=== PATIENT | male | born 1955 | race Caucasian/White ===

== ENCOUNTER 2018-10-18 05:43 | Emergency (ER) | payer MEDICARE, SELFPAY ==
[2018-10-18] VITALS (34 sets, daily range): BP systolic 94–126; BP diastolic 53–82; PULSE 59–124; RESP 10–45; TEMP 36.8; O2SAT 94–99
[2018-10-18 05:56] LABS: Abs Immature Grans 0.03 k/cumm (0.0-0.09); Absolute Basophil Count 0.03 k/cumm (0.0-0.2); Absolute Eosinophil Count 0.31 k/cumm (0.0-0.7); Absolute Lymphocyte Count 1.45 k/cumm (1.2-3.4); Absolute Monocyte Count 0.84 k/cumm (0.11-0.7); Absolute Neutrophil Count 4.23 k/cumm (1.2-6.7); Basophils % 0.4; Eosinophils % 4.5; HCT 41.6 % (40.0-50.0); HGB 14.6 g/dL (13.5-17.5); Immature Grans % 0.4; Mean Corp. HGB Concentration 35.1 g/dL (32.0-36.0); Mean Corpuscular Hemoglobin 32.9 pg (27.0-33.0); Mean Corpuscular Volume 93.7 fL (80-95); Mean Platelet Volume 11.2 fL (8.0-11.0); Monocytes % 12.2; Neutrophils % 61.5; Platelet Count 213 x1000/uL (130-400); RBC 4.44 m/cumm (4.50-6.00); RBC Distribution Width 13.8 % (11.8-14.1); White Blood Cell Count 6.89 k/cumm (4.4-10.8)
--- NOTE | 2018-10-18 05:58 | W.ED.GENAD ---
Discharge Plan Disposition Patient Disposition: [facility] Condition: Stable Discharge Details Chief Complaint: Chest Pain Clinical Impression: Non-ST elevation [place] (NSTEMI) Reason For Visit: LORNE Primary Care Provider: Amee Swain ED Provider: Bruce Oglesby Home Meds and New Rx's Prescriptions: No Action carvedilol 12.5 mg Tablet 12.5 mg PO DAILY RF: 0 aspirin 325 mg Tablet 325 mg PO DAILY RF: 0 nitroglycerin [Nitrostat] 0.4 mg Tablet, Sublingual 0.4 mg SUBLINGUAL .PRN CHEST PAIN RF: 0 Medical Decision Making 63-year-old male with history of coronary artery disease states to me that he is been having intermittent episodes of chest discomfort since July. He states that it initially seem to occur primarily with exertion and resolve with rest, now has begun to have rest pain over days time and required 3 NTG at home prior to EMS arrival. He arrives with chest pain that is abating. His vital signs are unremarkable. I obtained and reviewed records from his office visit with Dr. Jacobs on October 12. Office records note an EKG that reveals lateral ST depressions with T wave inversions that are not changed. It notes that the patient had stopped his medications due to monetary difficulties. The patient confirms this and states he had not been taking carvedilol for approximately 6 weeks prior to seeing his coupon clerk. He has restarted his medications including twice daily aspirin, carvedilol. Differential diagnosis includes stable angina, unstable angina, acute coronary syndrome. Patient was placed on a manager monitoring, referred for laboratory testing, EKG, chest x-ray. He had received 325mg aspirin and nitroglycerin x1 on route, was given a second nitroglycerin with improvement of discomfort. EKG is unchanged versus that described in the office visit with lateral ST segment depressions T wave inversions present. Labs reveal a positive troponin of 0.24. CBC stable, creatinine 1.2. The coagulation panel was reported as lipemic and not yet resulted. CXR without acute findings. Given the change in the patient's angina pattern, positive troponin, and history of multivessel coronary artery disease, the case was discussed with Dr Stoddard and patient accepted to Dr Mariano service. Medical Records Medical records reviewed: Yes I reviewed the patient's medical records. Lab Data Lab results reviewed: Yes I reviewed the patient's lab results. Laboratory Results - last 24 hr 10/18/18 10/18/18 10/18/18 05:46 05:46 05:46 WBC 6.89 RBC 4.44 L Hgb 14.6 Hct 41.6 MCV 93.7 MCH 32.9 MCHC 35.1 RDW 13.8 Plt Count 213 MPV 11.2 H Immature Gran % 0.4 Neutrophils % 61.5 Lymphocytes % 21.0 Monocytes % 12.2 Eosinophils % 4.5 Basophils % 0.4 Absolute Neutrophils 4.23 Absolute Lymphocytes 1.45 Absolute Monocytes 0.84 H Absolute Eosinophils 0.31 Absolute Basophils 0.03 APTT Sodium 135 L Potassium 4.3 Chloride 102 Carbon Dioxide 23.5 Anion Gap 9.5 BUN 22 H Creatinine 1.28 Estimated GFR/1.73 m2 56.95 Glucose 162 H Calcium 8.7 Magnesium 2.2 Total Bilirubin 0.5 AST 21 ALT 17 Alkaline Phosphatase 72 Troponin I 0.24 H Total Protein 7.3 Albumin 3.4 10/18/18 05:57 WBC RBC Hgb Hct MCV MCH MCHC RDW Plt Count MPV Immature Gran % Neutrophils % Lymphocytes % Monocytes % Eosinophils % Basophils % Absolute Neutrophils Absolute Lymphocytes Absolute Monocytes Absolute Eosinophils Absolute Basophils APTT Sodium Cancelled Potassium Cancelled Chloride Cancelled Carbon Dioxide Cancelled Anion Gap Cancelled BUN Cancelled Creatinine Cancelled Estimated GFR/1.73 m2 Cancelled Glucose Cancelled Calcium Cancelled Magnesium Total Bilirubin Cancelled AST Cancelled ALT Cancelled Alkaline Phosphatase Cancelled Troponin I Cancelled Total Protein Cancelled Albumin Cancelled ECG Data Attestation: I personally reviewed and interpreted this ECG (s) as follows: Prior ECG tracings: available for review Interpretation: EKG reveals normal sinus rhythm, rate of 66, lateral ST segment depressions with T wave inversions. HPI General Mode of arrival: ambulatory. Date/Time Provider Initiated Documentation: 10/18/18 06:06. Limitations to Documentation: no limitations. Information obtained by: patient. History of Present Illness 63 year old M presents to the emergency department with the chief complaint of Chest pain, described as moderate, Quality is described as dull, and is localized to the chest and left. Patient reports no radiation. Patient started experiencing this hour(s) and it has been intermittent. Rest improves symptom(s), No exacerbating factors reported . Patient notes no other symptoms.. Patient did receive the following treatments prior to arrival, none HPI Narrative: 63-year-old male with a history of coronary artery disease status post percutaneous stenting in the past who states that since July he has had intermittent episodes of anterior/substernal chest discomfort. He was awakened at 0200 this morning by 6 out of 10 substernal chest pressure, states that he took 3 some legal nitroglycerin at home with no significant change. He states that at times since July the pain has improved with rest and again seems to improve this morning. He denies any associated shortness of breath, peripheral edema, recent illness Related Data Home Medications Medication Instructions Recorded Confirmed aspirin 325 mg PO DAILY 10/18/18 10/18/18 carvedilol 12.5 mg PO DAILY 10/18/18 10/18/18 nitroglycerin [Nitrostat] 0.4 mg SUBLINGUAL .PRN CHEST PAIN 10/18/18 10/18/18 Allergies Allergy/AdvReac Type Severity Reaction Status Date / Time Sulfa (Sulfonamide Allergy Unverified 10/18/18 05:48 Antibiotics) General Stated Complaint: Chest Pain FIDENCIO: 2 Review of Systems Review of Systems 8 systems reviewed and otherwise neg [facility] Social History Smoking/Tobacco Use Status: Former Tobacco Use Exam Narrative Exam Narrative: GEN: awake, alert, oriented 3. Pleasant, well groomed, interactive. HEAD: Normocephalic, atraumatic ENT: Mucous membranes moist, oropharynx unremarkable, External ear exam unremarkable EYES: PERRL, EOMI NECK: Full ROM, no COLIN, no menigismus CHEST/RESP: Nontender, clear to auscultation bilateral, no wheeze/rhonchi/rales CARDIOVASCULAR: RRR, no murmur, rub alejandra. 2+ Rad pulse bilateral ABDOMEN: Soft, nontender, no mass. +Bowel sounds EXT: Full ROM, no edema, no rash Neuro: Grossly normal neurologic exam, conversant, interactive. Psych: Speech fluent, thoughts congruent, affect normal Course Vital Signs Temperature 36.8 C 10/18/18 05:44 Pulse 71 10/18/18 05:44 Respiratory Rate 12 10/18/18 05:44 Blood Pressure 126/80 10/18/18 05:44 Pulse Oximetry 97 10/18/18 05:44 Temperature 36.8 C 10/18/18 05:44 Temperature Source Temporal Artery Scan 10/18/18 05:44 Pulse 71 10/18/18 05:44 Respiratory Rate 12 10/18/18 05:55 Respiratory Effort Non-Labored 10/18/18 05:55 Respiratory Depth Normal 10/18/18 05:55 Respiratory Pattern Normal 10/18/18 05:55 Blood Pressure 126/80 10/18/18 05:44 Blood Pressure Position Supine 10/18/18 05:44 Pulse Oximetry 97 10/18/18 05:44 Oxygen Delivery Method Room Air 10/18/18 05:44 Oxygen Flow Rate 0 10/18/18 05:44 Pain Level 4 10/18/18 05:55 Lab/Test Results Lab/Test Results: Laboratory Tests Range/Units 10/18/18 05:46 WBC (4.4-10.8) k/cumm 6.89 RBC (4.50-6.00) m/cumm 4.44 L Hgb (13.5-17.5) g/dL 14.6 Hct (40.0-50.0) % 41.6 MCV (80-95) fL 93.7 MCH (27.0-33.0) pg 32.9 MCHC (32.0-36.0) g/dL 35.1 RDW (11.8-14.1) % 13.8 Plt Count (130-400) x1000/uL 213 MPV (8.0-11.0) fL 11.2 H Immature Gran % 0.4 Neutrophils % 61.5 Lymphocytes % 21.0 Monocytes % 12.2 Eosinophils % 4.5 Basophils % 0.4 Absolute Neutrophils (1.2-6.7) k/cumm 4.23 Absolute Lymphocytes (1.2-3.4) k/cumm 1.45 Absolute Monocytes (0.11-0.7) k/cumm 0.84 H Absolute Eosinophils (0.0-0.7) k/cumm 0.31 Absolute Basophils (0.0-0.2) k/cumm 0.03
--- NOTE | 2018-10-18 06:01 | ED.GENADUL_ITS ---
Discharge Plan Disposition Patient Disposition: [facility] Condition: Stable Discharge Details Chief Complaint: Chest Pain Clinical Impression: Non-ST elevation [place] (NSTEMI) Reason For Visit: LORNE Primary Care Provider: Amee Swain ED Provider: Bruce Oglesby Home Meds and New Rx's Prescriptions: No Action carvedilol 12.5 mg Tablet 12.5 mg PO DAILY RF: 0 aspirin 325 mg Tablet 325 mg PO DAILY RF: 0 nitroglycerin [Nitrostat] 0.4 mg Tablet, Sublingual 0.4 mg SUBLINGUAL .PRN CHEST PAIN RF: 0 Medical Decision Making 63-year-old male with history of coronary artery disease states to me that he is been having intermittent episodes of chest discomfort since July. He states that it initially seem to occur primarily with exertion and resolve with rest, now has begun to have rest pain over days time and required 3 NTG at home prior to EMS arrival. He arrives with chest pain that is abating. His vital signs are unremarkable. I obtained and reviewed records from his office visit with Dr. Jacobs on October 12. Office records note an EKG that reveals lateral ST depressions with T wave inversions that are not changed. It notes that the patient had stopped his medications due to monetary difficulties. The patient confirms this and states he had not been taking carvedilol for approximately 6 weeks prior to seeing his boiling tub operator. He has restarted his medications including twice daily aspirin, carvedilol. Differential diagnosis includes stable angina, unstable angina, acute coronary syndrome. Patient was placed on a senior formulation scientist, referred for laboratory testing, EKG, chest x-ray. He had received 325mg aspirin and nitroglycerin x1 on route, was given a second nitroglycerin with improvement of discomfort. EKG is unchanged versus that described in the office visit with lateral ST segment depressions T wave inversions present. Labs reveal a positive troponin of 0.24. CBC stable, creatinine 1.2. The coagulation panel was reported as lipemic and not yet resulted. CXR without acute findings. Given the change in the patient's angina pattern, positive troponin, and history of multivessel coronary artery disease, the case was discussed with Dr Stoddard and patient accepted to Dr Mariano service. Medical Records Medical records reviewed: Yes I reviewed the patient's medical records. Lab Data Lab results reviewed: Yes I reviewed the patient's lab results. Laboratory Results - last 24 hr 10/18/18 10/18/18 10/18/18 05:46 05:46 05:46 WBC 6.89 RBC 4.44 L Hgb 14.6 Hct 41.6 MCV 93.7 MCH 32.9 MCHC 35.1 RDW 13.8 Plt Count 213 MPV 11.2 H Immature Gran % 0.4 Neutrophils % 61.5 Lymphocytes % 21.0 Monocytes % 12.2 Eosinophils % 4.5 Basophils % 0.4 Absolute Neutrophils 4.23 Absolute Lymphocytes 1.45 Absolute Monocytes 0.84 H Absolute Eosinophils 0.31 Absolute Basophils 0.03 APTT Sodium 135 L Potassium 4.3 Chloride 102 Carbon Dioxide 23.5 Anion Gap 9.5 BUN 22 H Creatinine 1.28 Estimated GFR/1.73 m2 56.95 Glucose 162 H Calcium 8.7 Magnesium 2.2 Total Bilirubin 0.5 AST 21 ALT 17 Alkaline Phosphatase 72 Troponin I 0.24 H Total Protein 7.3 Albumin 3.4 10/18/18 05:57 WBC RBC Hgb Hct MCV MCH MCHC RDW Plt Count MPV Immature Gran % Neutrophils % Lymphocytes % Monocytes % Eosinophils % Basophils % Absolute Neutrophils Absolute Lymphocytes Absolute Monocytes Absolute Eosinophils Absolute Basophils APTT Sodium Cancelled Potassium Cancelled Chloride Cancelled Carbon Dioxide Cancelled Anion Gap Cancelled BUN Cancelled Creatinine Cancelled Estimated GFR/1.73 m2 Cancelled Glucose Cancelled Calcium Cancelled Magnesium Total Bilirubin Cancelled AST Cancelled ALT Cancelled Alkaline Phosphatase Cancelled Troponin I Cancelled Total Protein Cancelled Albumin Cancelled ECG Data Attestation: I personally reviewed and interpreted this ECG (s) as follows: Prior ECG tracings: available for review Interpretation: EKG reveals normal sinus rhythm, rate of 66, lateral ST segment depressions with T wave inversions. HPI General Mode of arrival: ambulatory . Date/Time Provider Initiated Documentation: 10/18/18 06:06 . Limitations to Documentation: no limitations . Information obtained by: patient . History of Present Illness 63 year old M presents to the emergency department with the chief complaint of Chest pain, described as moderate, Quality is described as dull, and is localized to the chest and left. Patient reports no radiation. Patient started experiencing this hour(s) and it has been intermittent. Rest improves symptom(s), No exacerbating factors reported . Patient notes no other symptoms.. Patient did receive the following treatments prior to arrival, none HPI Narrative: 63-year-old male with a history of coronary artery disease status post percutaneous stenting in the past who states that since July he has had intermittent episodes of anterior/substernal chest discomfort. He was awakened at 0200 this morning by 6 out of 10 substernal chest pressure, states that he took 3 some legal nitroglycerin at home with no significant change. He states that at times since July the pain has improved with rest and again seems to improve this morning. He denies any associated shortness of breath, peripheral edema, recent illness Related Data Home Medications Medication Instructions Recorded Confirmed aspirin 325 mg PO DAILY 10/18/18 10/18/18 carvedilol 12.5 mg PO DAILY 10/18/18 10/18/18 nitroglycerin [Nitrostat] 0.4 mg SUBLINGUAL .PRN CHEST PAIN 10/18/18 10/18/18 Allergies Allergy/AdvReac Type Severity Reaction Status Date / Time Sulfa (Sulfonamide Allergy Unverified 10/18/18 05:48 Antibiotics) General Stated Complaint: Chest Pain FIDENCIO: 2 Review of Systems Review of Systems 8 systems reviewed and otherwise neg [facility] Social History Smoking/Tobacco Use Status: Former Tobacco Use Exam Narrative Exam Narrative: GEN: awake, alert, oriented 3. Pleasant, well groomed, interactive. HEAD: Normocephalic, atraumatic ENT: Mucous membranes moist, oropharynx unremarkable, External ear exam unremarkable EYES: PERRL, EOMI NECK: Full ROM, no COLIN, no menigismus CHEST/RESP: Nontender, clear to auscultation bilateral, no wheeze/rhonchi/rales CARDIOVASCULAR: RRR, no murmur, rub alejandra. 2+ Rad pulse bilateral ABDOMEN: Soft, nontender, no mass. +Bowel sounds EXT: Full ROM, no edema, no rash Neuro: Grossly normal neurologic exam, conversant, interactive. Psych: Speech fluent, thoughts congruent, affect normal Course Vital Signs Temperature 36.8 C 10/18/18 05:44 Pulse 71 10/18/18 05:44 Respiratory Rate 12 10/18/18 05:44 Blood Pressure 126/80 10/18/18 05:44 Pulse Oximetry 97 10/18/18 05:44 Temperature 36.8 C 10/18/18 05:44 Temperature Source Temporal Artery Scan 10/18/18 05:44 Pulse 71 10/18/18 05:44 Respiratory Rate 12 10/18/18 05:55 Respiratory Effort Non-Labored 10/18/18 05:55 Respiratory Depth Normal 10/18/18 05:55 Respiratory Pattern Normal 10/18/18 05:55 Blood Pressure 126/80 10/18/18 05:44 Blood Pressure Position Supine 10/18/18 05:44 Pulse Oximetry 97 10/18/18 05:44 Oxygen Delivery Method Room Air 10/18/18 05:44 Oxygen Flow Rate 0 10/18/18 05:44 Pain Level 4 10/18/18 05:55 Lab/Test Results Lab/Test Results: Laboratory Tests Range/Units 10/18/18 05:46 WBC (4.4-10.8) k/cumm 6.89 RBC (4.50-6.00) m/cumm 4.44 L Hgb (13.5-17.5) g/dL 14.6 Hct (40.0-50.0) % 41.6 MCV (80-95) fL 93.7 MCH (27.0-33.0) pg 32.9 MCHC (32.0-36.0) g/dL 35.1 RDW (11.8-14.1) % 13.8 Plt Count (130-400) x1000/uL 213 MPV (8.0-11.0) fL 11.2 H Immature Gran % 0.4 Neutrophils % 61.5 Lymphocytes % 21.0 Monocytes % 12.2 Eosinophils % 4.5 Basophils % 0.4 Absolute Neutrophils (1.2-6.7) k/cumm 4.23 Absolute Lymphocytes (1.2-3.4) k/cumm 1.45 Absolute Monocytes (0.11-0.7) k/cumm 0.84 H Absolute Eosinophils (0.0-0.7) k/cumm 0.31 Absolute Basophils (0.0-0.2) k/cumm 0.03
--- NOTE | 2018-10-18 06:10 | DI.RAD_ITS ---
SYMPTOM/DIAGNOSIS: LT ANT CHEST PAIN PA AND LATERAL CHEST: Comparison is made with 08/26/09. Heart size and pulmonary vasculature are within normal limits. The lungs are clear and well expanded. No effusions or pneumothoraces are identified. There are old compression deformities seen in the mid thoracic spine with exaggeration of the thoracic kyphosis. No acute abnormality is seen in the bones. IMPRESSION: No acute pulmonary process.
[2018-10-18 06:12] LABS: Albumin 3.4 g/dL (3.4-5.0); Anion Gap 9.5 mmol/L (3-11); BUN 22 mg/dL (7-18); Bilirubin, Total 0.5 mg/dL (0.2-1.0); CO2 23.5 mmol/L (21.0-32.0); CREATININE 1.28 mg/dL (0.70-1.30); Chloride 102 mmol/L (98-107); Estimated GFR 56.95 (mL/min/1.73m2); Magnesium 2.2 mg/dL (1.8-2.4); Potassium 4.3 mmol/L (3.5-5.1); Sodium 135 mmol/L (136-145); Total Protein 7.3 g/dL (6.4-8.2)
[2018-10-18 06:25] LABS: AST 21 U/L (15-37); Alkaline Phosphatase 72 U/L (46-116)
[2018-10-18 06:36] LABS: Troponin I 0.24 ng/mL (0.00-0.06)
[2018-10-18 06:37] LABS: Calcium 8.7 mg/dL (8.5-10.1)
[2018-10-18 06:38] LABS: ALT 17 U/L (12-78)
[2018-10-18 06:39] LABS: Glucose 162 mg/dL (70-100)
--- NOTE | 2018-10-18 06:49 | DI.VRAD_ITS ---
EXAM: XR Chest, 2 Views EXAM DATE/TIME: 10/18/2018 6:11 AM CLINICAL HISTORY: 63 years old, male; Pain; Chest pain; Left-sided chest pain; Patient HX: Left anterior chest pain TECHNIQUE: XR of the chest, 2 views. COMPARISON: No relevant prior studies available. FINDINGS: Lungs: Unremarkable. No consolidation. Pleural space: Unremarkable. No pleural effusion. No pneumothorax. Heart/Mediastinum: Unremarkable. No cardiomegaly. Bones/joints: Unremarkable. IMPRESSION: No acute findings. Dictated and Authenticated by: Shivam Recinos MD. Ordering:TIM Barrera MD
[2018-10-18] MEDS: Normal Saline 1,000 ML 50 ML IV (07:07)
[2018-10-18] MEDS: Clopidogrel 300 MG TAB PO (07:14)
--- NOTE | 2018-10-18 07:24 | PDOC.ERCMPRO ---
Care Management Progress Note 10/18-Dr. Oglesby requested that this CM speak with Lico concerning medication and insurance. Met with Lico. I thought I was having a heart attack. I am waiting for the doctor to tell me my blood test results to see if I did. Lico states he had not taken his medication for some time because he could not afford it. Lico states he used to have Medicare Part D but the premium was too expensive and he just didn't have the income to pay. Lico states he recently was able to get his medications. Interested in patient assistance. Discussed [employer] and applying for Medicaid. Lico states he does not want welfare. Explained to Lico that Medicaid was not welfare and that if he qualified, it would take care of his medications and doctor/hospital copays. This CM gave him a pamphlet to [employer]. Also gave Lico Patient assistance contact for [facility].Lico states he will call [facility] Kimberly. and set up a time. If Lico is discharged from the ED, he states he will call a friend to come and get him. Dr. Oglesby has results back and discussed with Lico. Lico is being transferred to [facility] for a NSTEMI. Lico will call his friend to let him know. Dr Schilling is Lico's supervisor paste mixing. Shantelle Araujo ND is his PCP. Lico has this CM's contact information if further assistance is needed.
[2018-10-18] MEDS: Mylanta Suspension 30 ML CUP (07:31)
--- NOTE | 2018-10-18 07:34 | CMPROGNOTE_ITS ---
Care Management Progress Note 10/18-Dr. Oglesby requested that this CM speak with Lico concerning medication and insurance. Met with Lico. I thought I was having a heart attack. I am waiting for the doctor to tell me my blood test results to see if I did. Lico states he had not taken his medication for some time because he could not afford it. Lico states he used to have Medicare Part D but the premium was too expensive and he just didn't have the income to pay. Lico states he recently was able to get his medications. Interested in patient assistance. Discussed [employer] and applying for Medicaid. Lico states he does not want welfare. Explained to Lico that Medicaid was not welfare and that if he qualified, it would take care of his medications and doctor/hospital copays. This CM gave him a pamphlet to [employer]. Also gave Lico Patient assistance contact for [facility].Lico states he will call [facility] Kimberly. and set up a time. If Lico is discharged from the ED, he states he will call a friend to come and get him. Dr. Oglesby has results back and discussed with Lico. Lico is being transferred to [facility] for a NSTEMI. Lico will call his friend to let him know. Dr Schilling is Lico's light oil operator. Shantelle Araujo ND is his PCP. Lico has this CM's contact information if further assistance is needed.
[2018-10-18 16:23] LABS: PTT (UVM) 30 secs (26-37)
== END 2018-10-18 09:09 | disposition short-term general hospital (02) ==
PROVIDERS: Emergency Provider Emergency Medicine; PCP Naturopath
DX: I21.4 Non-ST elevation (NSTEMI) myocardial infarction (principal); T44.7X6A Underdosing of beta-adrenoreceptor antagonists, initial encounter; Z91.120 Patient's intentional underdosing of medication regimen due to financial hardship; I25.2 Old myocardial infarction; Z95.5 Presence of coronary angioplasty implant and graft
CPT/HCPCS: 36415; 80053; 85610; 85730; 93005; 96365; 96366; 96376; 99285; 71046; 83735; 84484; 85025; 93010

== ENCOUNTER 2018-11-22 10:00 | Outpatient (RCR) | payer MEDICARE, SELFPAY | END 2018-11-25 23:59 | disposition home or self-care (01) | LOC: CR 10:00 | PROVIDERS: PCP Naturopath; Visit Provider Family Medicine | DX: I25.2 Old myocardial infarction (principal); Z51.89 Encounter for other specified aftercare | CPT/HCPCS: S9472 ==

== ENCOUNTER 2018-11-22 16:04 | Outpatient (RCR) | payer MEDICARE, SELFPAY ==
--- NOTE | 2018-11-22 16:10 | COCO.CNN ---
Primary Reason for Visit Insurance (Medicaid application and patient assistance applications) Referral to Care Coordination Referral to Care Coordination: No Referral to Services: No - Referral From Referral From: [facility] Care Plan - Plan of Care Assessment/Background: client was walk in. needs assistance with Medicaid application. states had recent surgery and has bills coming in from [facility], ambulance and [facility]. bills have not arrived yet. attending caric rehab and needs assistance with paying for gas for car to get there. 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 Plan of Care: This CHW went over MED 202 with client. client does not have all information needed to complete and will do so at home. This CHW printed off [facility] Patient assistance application so client can see what he will need to provide for documentation for that and [facility] patient assistance application if he receives denial notice for Medicaid. This CHW gave client [facility] contact information for him to inquire if he can obtain mileage for transportating himself to cardiac rehab 3 times a week. [facility] Self Management Plan Complete?: No
--- NOTE | 2018-11-22 16:17 | PDOC.CNN_ITS ---
Primary Reason for Visit Insurance (Medicaid application and patient assistance applications) Referral to Care Coordination Referral to Care Coordination: No Referral to Services: No - Referral From Referral From: [facility] Care Plan - Plan of Care Assessment/Background: client was walk in. needs assistance with Medicaid application. states had recent surgery and has bills coming in from [facility], ambulance and [facility]. bills have not arrived yet. attending caric rehab and needs assistance with paying for gas for car to get there. 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 Plan of Care: This CHW went over MED 202 with client. client does not have all information needed to complete and will do so at home. This CHW printed off [facility] Patient assistance application so client can see what he will need to provide for documentation for that and [facility] patient assistance application if he receives denial notice for Medicaid. This CHW gave client [facility] contact i nformation for him to inquire if he can obtain mileage for transportating himself to cardiac rehab 3 times a week. [facility] Self Management Plan Complete?: No
== END 2018-11-25 23:59 | disposition home or self-care (01) ==
LOC: COCO 16:04
PROVIDERS: PCP Naturopath; Visit Provider Naturopath
DX: R69 Illness, unspecified (principal)

== ENCOUNTER 2018-12-22 09:00 | Outpatient (RCR) | payer MEDICARE, SELFPAY | END 2018-12-26 23:59 | disposition home or self-care (01) | LOC: CR 09:00 | PROVIDERS: PCP Naturopath; Visit Provider Family Medicine | DX: I25.2 Old myocardial infarction (principal); Z51.89 Encounter for other specified aftercare | CPT/HCPCS: S9472 ==

== ENCOUNTER 2019-01-24 10:00 | Outpatient (RCR) | payer MEDICARE, SELFPAY | END 2019-01-25 23:59 | disposition home or self-care (01) | LOC: CR 10:00 | PROVIDERS: PCP Family Medicine; Visit Provider Family Medicine | DX: I25.2 Old myocardial infarction (principal); Z51.89 Encounter for other specified aftercare | CPT/HCPCS: S9472 ==

== ENCOUNTER 2019-02-09 02:15 | Outpatient (CLI) | payer MEDICARE, SELFPAY ==
[2019-02-09 10:38] LABS: Cholesterol 232 mg/dL (50-200); HDL Cholesterol 32 mg/dL (40-60); LDL CHOLESTEROL 110 mg/dL (<100); Triglyceride 493 mg/dL (30-150)
== END 2019-02-09 02:35 ==
PROVIDERS: PCP Family Medicine; Visit Provider Internal Medicine Cardiovascular Disease
DX: E78.5 Hyperlipidemia, unspecified (principal)
CPT/HCPCS: 36415; 80061; 83721

== ENCOUNTER 2019-02-25 11:52 | Outpatient (RCR) | payer MEDICARE, SELFPAY | END 2019-02-25 23:59 | disposition home or self-care (01) | LOC: CR 11:52 | PROVIDERS: PCP Family Medicine; Visit Provider Family Medicine | DX: I25.2 Old myocardial infarction (principal); Z51.89 Encounter for other specified aftercare | CPT/HCPCS: S9472 ==

== ENCOUNTER 2019-03-25 10:00 | Outpatient (RCR) | payer MEDICARE, SELFPAY | END 2019-03-27 23:59 | disposition home or self-care (01) | LOC: CR 10:00 | PROVIDERS: PCP Family Medicine; Visit Provider Family Medicine | DX: I25.2 Old myocardial infarction (principal); Z51.89 Encounter for other specified aftercare | CPT/HCPCS: S9472 ==

== ENCOUNTER 2019-03-28 12:36 | Outpatient (RCR) | payer MEDICARE, SELFPAY | END 2019-04-27 23:59 | disposition home or self-care (01) | LOC: CR 12:36 | PROVIDERS: PCP Family Medicine; Visit Provider Family Medicine | DX: I25.2 Old myocardial infarction (principal); Z51.89 Encounter for other specified aftercare | CPT/HCPCS: S9472 ==

== ENCOUNTER 2019-04-08 07:31 | Outpatient (CLI) | payer MEDICARE, SELFPAY ==
[2019-04-08 09:14] LABS: Calculated LDL 128 mg/dL; Cholesterol 218 mg/dL (50-200); HDL Cholesterol 36 mg/dL (40-60); Triglyceride 273 mg/dL (30-150)
== END 2019-04-08 07:51 ==
PROVIDERS: PCP Family Medicine; Visit Provider Internal Medicine Cardiovascular Disease
DX: E78.5 Hyperlipidemia, unspecified (principal)
CPT/HCPCS: 36415; 80061; 83721

== ENCOUNTER 2019-12-07 02:59 | Observation (INO) | payer MEDICARE, SELFPAY ==
[2019-12-07] VITALS (37 sets, daily range): BP systolic 93–142; BP diastolic 47–90; PULSE 55–88; RESP 10–25; TEMP 36.4–37.2; O2SAT 86–98
--- NOTE | 2019-12-07 03:08 | W.ED.GENAD ---
Discharge Plan Disposition Patient Disposition: [facility] INPATIENT Condition: Stable Discharge Details Chief Complaint: Abd Prob Clinical Impression: Acute appendicitis Primary Care Provider: Bruce Nelson ED Provider: Maged Delarosa Home Meds and New Rx's Prescriptions: No Action clopidogrel 75 mg tablet 75 mg PO DAILY RF: 0 carvedilol 12.5 mg Tablet 12.5 mg PO DAILY RF: 0 aspirin 325 mg Tablet 325 mg PO DAILY RF: 0 nitroglycerin [Nitrostat] 0.4 mg Tablet, Sublingual 0.4 mg SUBLINGUAL .PRN CHEST PAIN RF: 0 lisinopril 2.5 mg Tablet 2.5 mg DAILY RF: 0 Medical Decision Making 64 yo male with hx of cad s/p stenting 4 times, former smoker, hld, who drinks a couple of beers a day and denies drug use and has never had abdominal surgeries comes in with cc of abdominal pain. he states he has episodes of cramping in his abdomen frequently but usually goes away in a few hours but tonight the pain has continued longer and had some dry heaving so came here. Denies chest pain, sob, diarrhea, and has no urinary symptoms per his report. He has tenderness without guarding in the lower abdomen no upper abdominal pain or distention. Will obtain lab work and ct imaging to eval for pancreatitis, diverticulitis among other pathology. He declines pain meds at this time ct shows acute appendicitis. Spoke with Dr. Olivera who accepts to her service. Differential Diagnosis Differential Diagnosis: appendicitis, uti, colitis, diverticulitis Imaging Data Radiologic Study: Attestation: I personally reviewed and interpreted this imaging study as follows: Imaging: CT Scan Radiologist's impression: IMPRESSION: 1. Acute appendicitis. 2. The appendix measures 1 cm in transverse dimension. No abscess or free air Lab Data Lab results reviewed: Yes I reviewed the patient's lab results. HPI General Mode of arrival: ambulatory. Date/Time Provider Initiated Documentation: 12/07/19 03:01. Limitations to Documentation: no limitations. Information obtained by: patient. History of Present Illness 64 year old M presents to the emergency department with the chief complaint of abdominal pain, described as moderate, Patient started experiencing this hour(s) (7) and it has been intermittent. No relieving factors improve symptom(s), No exacerbating factors reported . Patient notes no other symptoms.. Patient did receive the following treatments prior to arrival, none Related Data Home Medications Medication Instructions Recorded Confirmed aspirin 325 mg PO DAILY 10/18/18 12/07/19 carvedilol 12.5 mg PO DAILY 10/18/18 12/07/19 nitroglycerin [Nitrostat] 0.4 mg SUBLINGUAL .PRN CHEST PAIN 10/18/18 12/07/19 clopidogrel 75 mg tablet 75 mg PO DAILY 12/24/18 12/07/19 lisinopril 2.5 mg DAILY 12/07/19 12/07/19 Allergies Allergy/AdvReac Type Severity Reaction Status Date / Time Sulfa (Sulfonamide Allergy Unverified 10/18/18 05:48 Antibiotics) General FIDENCIO: 2 Review of Systems All systems reviewed & are unremarkable except as noted in HPI and below Constitutional Constitutional: Denies chills and Denies fever(s) Cardiovascular Cardiovascular: Denies chest pain and Denies dyspnea Respiratory Respiratory: Denies cough and Denies dyspnea Musculoskeletal Musculoskeletal: Denies joint swelling Psychiatric Psychiatric: Denies depression [facility] Social History (Updated 11/19/18 @ 09:45 by Amelia Ortega) Smoking/Tobacco Use Status: Former Tobacco Use Alcohol Intake: current Alcohol Intake frequency: 0-2 drinks per day Substance use type: does not use Do you feel safe at home: Yes Do you feel safe in your relationship?: Yes Exam Const General: no acute distress Orientation: alert HENMT Head: normal to inspection Ears: external ears normal General nose exam: external nose normal Mouth: moist mucous membranes Eyes General: appearance normal, both eyes and all related structures Neck Neck: normal visual inspection Resp Effort & Inspection: normal respiratory effort and able to speak in complete sentences Cardio Rate: regular rate GI Palpation: soft and tender Skin General skin exam: no rashes or lesions noted Neuro General: alert and oriented x3 Extrem General: normal to inspection Psych Mental Status: mental status grossly normal
[2019-12-07 03:29] LABS: Abs Immature Grans 0.02 k/cumm (0.0-0.09); Absolute Eosinophil Count 0.01 k/cumm (0.0-0.7); Absolute Lymphocyte Count 0.98 k/cumm (1.2-3.4); Absolute Monocyte Count 1.04 k/cumm (0.11-0.7); Basophils % 0.1; Eosinophils % 0.1; HCT 42.5 % (40.0-50.0); HGB 14.6 g/dL (13.5-17.5); Immature Grans % 0.1 %; Lymphocytes % 7.1; Mean Corp. HGB Concentration 34.4 g/dL (32.0-36.0); Mean Corpuscular Hemoglobin 31.9 pg (27.0-33.0); Monocytes % 7.5; Neutrophils % 85.1; Platelet Count 238 x1000/uL (130-400); RBC 4.57 m/cumm (4.50-6.00); RBC Distribution Width 13.5 % (11.8-14.1); White Blood Cell Count 13.87 k/cumm (4.4-10.8)
--- NOTE | 2019-12-07 03:30 | DI.CT_ITS ---
EXAM: CT ABDOMEN PELVIS W CLINICAL HISTORY: lower abdominal pain. TECHNIQUE: Imaging Protocol: Axial computed tomography images with coronal and sagittal reformatted images were created and reviewed CONTRAST MATERIAL: Intravenous: Omnipaque 350 Contrast volume:100 ml Oral: no COMPARISON: No exams were available for comparison FINDINGS: ABDOMEN: Lung Bases: Normal where visualized. Liver: The liver shows moderate fatty infiltration and a few small cysts. Gallbladder and biliary tract: No radiodense calculus or dilation. Pancreas: Normal density, no abnormal calcifications or inflammatory process. Spleen: Normal. Kidneys: Normal size, contour and axis. No radiodense stones or obstructive uropathy. No masses seen. Adrenal glands: No masses seen. Abdominal Aorta: Abdominal portion non-dilated. Moderate calcification. PELVIS: Bladder: Symmetric distention, no gross wall thickening. Bowel: The appendix is dilated to 1 cm. No appendicoliths seen. There is no evidence of free air, f ree fluid or abscess. There is no bowel obstruction. Bones: There are mild degenerative changes. A hemangioma is noted in the L4 vertebral body. Reproductive organs: Within normal limits. Lymph nodes: Unremarkable. Impression: Findings consistent with acute appendicitis. No perforation or abscess.. DATA REPOSITORY: All CT scans at this facility are submitted to the National Radiology Data Registry (NRDR) Dose Index Registry (DIR) with the [employer] ([employer]). RADIATION OPTIMIZATION: All CT scans at this facility use at least one of these dose optimization te chniques: automated exposure control; mA and/or kV adjustment per patient size (includes targeted exa ms where dose is matched to clinical indication); or iterative reconstruction.
[2019-12-07 03:31] LABS: Absolute Basophil Count 0.01 k/cumm (0.0-0.2)
[2019-12-07] MEDS: Omnipaque 350 MG/ML 100 ML BTL IJ (03:35)
[2019-12-07 03:38] LABS: ALT 16 U/L (16-63); AST 22 U/L (15-37); Albumin 3.8 g/dL (3.4-5.0); Alkaline Phosphatase 71 U/L (46-116); BUN 18 mg/dL (7-18); Bilirubin, Direct 0.11 mg/dL (0.00-0.20); Bilirubin, Total 0.5 mg/dL (0.2-1.0); CREATININE 1.18 mg/dL (0.70-1.30); Calcium 8.7 mg/dL (8.5-10.1); Chloride 102 mmol/L (98-107); Glucose 132 mg/dL (74-106); Lipase 230 U/L (73-393); Potassium 4.2 mmol/L (3.5-5.1); Sodium 138 mmol/L (136-145); Total Protein 7.7 g/dL (6.4-8.2)
[2019-12-07] MEDS: Normal Saline - Diluent 50 ML VIAL IV (03:43)
[2019-12-07 04:01] LABS: Bilirubin Negative (Negative); Blood Negative (Negative); Clarity Clear (Clear); Glucose Negative (Negative); Ketones Negative (Negative); Leukocyte Esterase Negative (Negative); Nitrite Negative (Negative); Specific Gravity 1.015 (1.005-1.025); Urobilinogen 0.2 EU/dL (Up TO 0.2)
--- NOTE | 2019-12-07 04:22 | DI.VRAD_ITS ---
Addendum created by Shivam Recinos MD on 12/07/2019 4:25:22 AM EDT This report contains findings may be critical to patient care. Maged Delarosa confirms receipt of report at4:25 AM ED12/07/2019. Initial report created on 12/07/2019 4:22:11 AM EDT PROCEDURE INFORMATION: Exam: CT Abdomen And Pelvis With Contrast Exam date and time: 12/07/2019 3:31 AM Age: 64 years old Clinical indication: Localized; Patient HX: Lower abdominal pain and cramping for 36 hours TECHNIQUE: Imaging protocol: Computed tomography of the abdomen and pelvis with intravenous contrast. Radiation optimization: All CT scans at this facility use at least one of these dose optimization techniques: automated exposure control; mA and/or kV adjustment per patient size (includes targeted exams where dose is matched to clinical indication); or iterative reconstruction. Contrast material: OMNIPAQUE 350; Contrast volume: 100 ml; Contrast route: IV RAC; COMPARISON: No relevant prior studies available. FINDINGS: Liver: Simple hepatic cysts measure 14 mm left lobe Hepatic steatosis is present. Gallbladder and bile ducts: Normal. No calcified stones. No ductal dilation. Pancreas: Normal. No ductal dilation. Spleen: Normal. No splenomegaly. Adrenals: Normal. No mass. Kidneys and ureters: Normal. No hydronephrosis. Stomach and bowel: Unremarkable. No obstruction. No mucosal thickening. Appendix: Acute appendicitis. The appendix measures 1 cm in transverse dimension. No abscess or free air. Intraperitoneal space: See Appendix Finding. Vasculature: Unremarkable. No abdominal aortic aneurysm. Lymph nodes: Unremarkable. No enlarged lymph nodes. Bladder: Unremarkable as visualized. Reproductive: Unremarkable as visualized. Bones/joints: Unremarkable. No acute fracture. Soft tissues: Unremarkable. IMPRESSION: 1. Acute appendicitis. 2. The appendix measures 1 cm in transverse dimension. No abscess or free air. Dictated and Authenticated by: Shivam Recinos MD. Ordering:ABEL Lynne MD
[2019-12-07] MEDS: HYDROmorphone 2 MG/ML VIAL 1 MG IVP (04:47)
[2019-12-07] MEDS: Ondansetron 4 MG/2 ML VIAL IVP (04:48)
[2019-12-07] MEDS: PIPERACILLIN/TAZO 4.5 GM in Normal Saline 100 ML IVPB (04:49)
[2019-12-07] MEDS: Normal Saline 1,000 ML 1000 ML IV (05:20)
--- NOTE | 2019-12-07 05:45 | W.PM.HP.N ---
Date of service: 12/07/19 Time of Service: 05:45 Assessment and Plan Assessment and plan (1) Acute appendicitis: Status: Acute Assessment and plan: A\\64 year old male on Plavix with PMHx significant for KS's who came in with 18 hours of abdominal pain. CT scan showed enlarged appendix without signs of perforation. P\\ Laparoscopic appendectomy Risks, benefits and complications have been reviewed. Complications include but are not limited to bleeding, infection, injury to adjacent bowel, abscess formation, staple line leak, inability to do the procedure laparoscopically, injury to the ureter and bladder, Heart attack during or after surgery, Stroke, and adverse reaction to the medications. Questions were entertained and answered to their satisfaction and they wished to proceed. No guarantees were given or implied. Qualifiers: Acute appendicitis type: with localized peritonitis Appendicitis gangrene presence: without gangrene Appendicitis perforation presence: without perforation Appendicitis abscess presence: without abscess Qualified Code(s): K35.30 - Acute appendicitis with localized peritonitis, without perforation or gangrene History of Present Illness Consults Consult date: 12/07/19 Requesting physician: Maged Delarosa Narrative: 64 yo male with hx of cad s/p stenting 4 times, former smoker, who drinks a couple of beers a day and denies drug use and has never had abdominal surgeries comes in with cc of abdominal pain. He states he has episodes of cramping in his abdomen frequently but usually goes away in a few hours but tonight the pain has continued longer and had some dry heaving so came here. Denies chest pain, sob, diarrhea, and has no urinary symptoms per his report. HIs last [place] was September of 2018. He last saw his [facility] [employer] in [place] about 6 months ago. His pain is localized to the RLQ and started about [address] scan reviewed FINDINGS: Liver: Simple hepatic cysts measure 14 mm left lobe Hepatic steatosis is present. Gallbladder and bile ducts: Normal. No calcified stones. No ductal dilation. Pancreas: Normal. No ductal dilation. Spleen: Normal. No splenomegaly. Adrenals: Normal. No mass. Kidneys and ureters: Normal. No hydronephrosis. Stomach and bowel: Unremarkable. No obstruction. No mucosal thickening. Appendix: Acute appendicitis. The appendix measures 1 cm in transverse dimension. No abscess or free air. Intraperitoneal space: See Appendix Finding. Vasculature: Unremarkable. No abdominal aortic aneurysm. Lymph nodes: Unremarkable. No enlarged lymph nodes. Bladder: Unremarkable as visualized. Reproductive: Unremarkable as visualized. Bones/joints: Unremarkable. No acute fracture. Soft tissues: Unremarkable. IMPRESSION: 1. Acute appendicitis. 2. The appendix measures 1 cm in transverse dimension. No abscess or free air. Review of Systems Constitutional Constitutional: Denies fever(s) and Denies weight loss Eyes Eyes: Denies change in vision ENT Ears, Nose, Mouth, and Throat: Denies hoarseness Cardiovascular Cardiovascular: Denies chest pain, Denies chest pain at rest, Reports chest pain with activity, Denies rapid heart rate, Denies irregular heart rhythm, Denies palpitations, Denies dyspnea and Denies dyspnea on exertion Respiratory Respiratory: Denies chest congestion, Denies cough, Denies dyspnea and Denies dyspnea on exertion Gastrointestinal Gastrointestinal: Reports as per HPI Genitourinary Genitourinary: Denies hematuria and Denies dysuria Musculoskeletal Musculoskeletal: Reports system reviewed and no additional complaints, except as docu Integumentary/Breasts Skin/Breast: Reports system reviewed and no additional complaints, except as docu Neurologic Neurologic: Reports system reviewed and no additional complaints, except as docu Psychiatric Psychiatric: Reports system reviewed and no additional complaints, except as docu Endocrine Endocrine: Reports system reviewed and no additional complaints, except as docu and Denies palpitations Hematologic/Lymphatic Hematologic/Lymphatic: Reports system reviewed and no additional complaints, except as docu [facility] Medical History (Updated 12/07/19 @ 06:01 by Ynes Hammond MD) Cataplexy and narcolepsy (Inactive) Eosinophilia (Inactive) Fatigue (Inactive) Hyperlipidemia (Inactive) NSTEMI (non-ST elevated myocardial infarction) (Inactive) 10/18/2018 with stents X 4 at [facility] [place] Restless legs syndrome (Inactive) Vitamin D deficiency (Inactive) Surgical History (Updated 12/07/19 @ 05:56 by Ynes Hammond MD) H/O heart artery stent (Chronic) x4 Social History (Updated 11/19/18 @ 09:45 by Amelia Ortega) Smoking/Tobacco Use Status: Former Tobacco Use Alcohol Intake: current Alcohol Intake frequency: 0-2 drinks per day Substance use type: does not use Do you feel safe at home: Yes Do you feel safe in your relationship?: Yes Meds Home Medications and Allergies Home Medications Medication Instructions Recorded Confirmed Type aspirin 325 mg PO DAILY 10/18/18 12/07/19 History carvedilol 12.5 mg PO DAILY 10/18/18 12/07/19 History nitroglycerin [Nitrostat] 0.4 mg SUBLINGUAL .PRN CHEST PAIN 10/18/18 12/07/19 History clopidogrel 75 mg tablet 75 mg PO DAILY 12/24/18 12/07/19 History lisinopril 2.5 mg DAILY 12/07/19 12/07/19 History Allergies Allergy/AdvReac Type Severity Reaction Status Date / Time Sulfa (Sulfonamide Allergy Unverified 10/18/18 05:48 Antibiotics) Exam Const General: cooperative and no acute distress Orientation: alert and oriented x3 HENMT Head: normocephalic and atraumatic Resp Effort & Inspection: normal respiratory effort Auscultation: clear to auscultation bilaterally Cardio Rate: regular rate Rhythm: regular rhythm Heart Sounds: no gallops, no murmurs and no rubs GI Palpation: soft, no hepatosplenomegaly and tender in the RLQ Auscultation: normal bowel sounds Results Labs Result diagrams: 12/07/19 03:15 12/07/19 03:15 Labs: Laboratory Results - last 24 hr 12/07/19 12/07/19 12/07/19 03:15 03:15 03:55 WBC 13.87 H RBC 4.57 Hgb 14.6 Hct 42.5 MCV 93.0 MCH 31.9 MCHC 34.4 RDW 13.5 Plt Count 238 MPV 11.0 Immature Gran % 0.1 Neutrophils % 85.1 Lymphocytes % 7.1 Monocytes % 7.5 Eosinophils % 0.1 Basophils % 0.1 Absolute Neutrophils 11.80 H Absolute Lymphocytes 0.98 L Absolute Monocytes 1.04 H Absolute Eosinophils 0.01 Absolute Basophils 0.01 Sodium 138 Potassium 4.2 Chloride 102 Carbon Dioxide 29.0 Anion Gap 7.0 BUN 18 Creatinine 1.18 Estimated GFR/1.73 m2 >= 60.00 Glucose 132 H Calcium 8.7 Total Bilirubin 0.5 Conjugated Bilirubin 0.11 AST 22 ALT 16 Alkaline Phosphatase 71 Total Protein 7.7 Albumin 3.8 Lipase 230 Urine Color Yellow Urine Clarity Clear Urine pH 8.0 Ur Specific [place] 1.015 Urine Protein Negative Urine Ketones Negative Urine Blood Negative Urine Nitrite Negative Urine Bilirubin Negative Urine Urobilinogen 0.2 Ur Leukocyte Esterase Negative Urine Glucose Negative Last Vital Signs Temp 99.0 F 12/07/19 03:06 Pulse 66 12/07/19 04:44 Resp 16 12/07/19 04:44 BP 112/56 L 12/07/19 04:44 Pulse Ox 92 L 12/07/19 04:44
--- NOTE | 2019-12-07 06:05 | ROE_ITS ---
Date of service: 12/07/19 Time of Service: 06:50 Operative Note Operative Note DATE OF PROCEDURE: 12/07/19 PRE-OP DIAGNOSIS: Acute appendicitis POST-OP DIAGNOSIS: same PROCEDURE: Laparoscopic appendectomy SURGEON: Ynes Hammond HOUSEKEEPER CAREGIVER: Shayne Gaspar ANESTHESIA: GETA (ASA 4E/ Jose Chowdhury, MADDIE) ESTIMATED BLOOD LOSS: 15 PATHOLOGY: other (Appendix) COMPLICATIONS: None Patient was transported to: PACU Patient's condition: stable Implants: None Indications: 64 yo male with hx of cad s/p stenting 4 times, former smoker, who drinks a couple of beers a day and denies drug use and has never had abdominal surgeries comes in with cc of abdominal pain. He states he has episodes of cramping in his abdomen frequently but usually goes away in a few hours but tonight the pain has continued longer and had some dry heaving so came here. Denies chest pain, sob, diarrhea, and has no urinary symptoms per his report. HIs last [place] was September of 2018. He last saw his [facility] in [place] about 6 months ago. His pain is localized to the RLQ and started about 18 hours ago. Findings: Acute appendicitis with patchy necrosis Procedure Description: After informed consent was obtained the patient was taken to the operating room placed in the supine position SCDs were applied as well as monitors. A timeout was done. The patient was then placed under general anesthesia and intubated without any difficulty. Next a Snyder catheter was placed in a standard surgical fashion. At this point the abdomen was prepped and draped in a sterile surgical fashion with chlorhexidine. A second timeout was done and the patient's name, date of , operation to be performed, DVT prophylaxis, antibiotic given, and fire risk was assessed. Concern was for bleeding because the patient is anticoagulated, and NJ due to his history and EF of 20%. A small 5 mm incision was made with an 11 blade just above the umbilicus. The skin was grasped with penetrating towel clamps on either side of the incision and then using a Visiport a 5 mm port was placed under direct visualization into the abdomen. The abdomen was insufflated. A second small 5 mm incision was made with an 11 blade just above the pubic symphasis and another 5 mm port was placed under direct visualization into the abdomen. A 11 mm incision was made with an 11 blade in the LLQ and a 11 mm port was then placed under direct visualization. The patient's bed was then turned to the left and head down allowing me to sweep of the small bowel out of the right lower quadrant. The cecum was gently grasped and the appendix was identified. The appendix looked inflammed and thickened. There was patchy necrosis noted. The appendix was gently grasped at the neck and pulled up slightly allowing me to visualize the junction with the cecum. Using the laparoscopic LigaSure the mesoappendix was slowly transected. Once the meso-appendix was transected, a laparoscopic straight stapler was used to transected the appendix at the junction with the cecum. The appendix was placed into an Endo Catch bag and removed through the 11 mm port site. The port was placed back into the abdomen and the staple line was identified. No bleeding was noted. The transected mesentery was identified and no bleeding was noted. The 2 5 mm ports were then removed under direct visualization and no bleeding was noted from the fascia. The insufflation was stopped and the 11 mm port was removed. 10 cc of Exparel was injected into the fascia of all three port sites. The 11 mm port site fascia was closed with a 0 Vicryl [id number] suture. The skin was then closed with 4-0 Vicryl. The skin was cleaned and dried and steri-strips and a dry dressing were applied. The patient was woken up, extubated and taken back to recovery room in stable condition. There were no immediate complications. Sponge instrument needle counts were correct at the end of the case x2.
--- NOTE | 2019-12-07 06:41 | APP_PTH ---
PATIENT: Lico Martínez LOC: ICU U#:[id number] AGE/SX: 64/M ROOM: ICU.220 RE12/07/[address]: Ynes Hammond MD : [id number] BED: A DIS: 12/07/2019 SPEC #: [id number] RECD: 12/07/19 12:39 STATUS: SOUT REQ #: [id number] BENJAMÍN: 12/07/19 06:[address]: Ynes Hammond DEPT: Surgical Specimen RECD BY: Mónica Grimm ENTERED: 12/07/19 12:40 SP TYPE: Appendix OTHR DR: Bruce Nelson Tissues: 1 - APPENDIX NOT INCIDENTAL Procedures: GROSS AND MICRO LEVEL 3 Comments: [id number]
[2019-12-07] MEDS: Bupivacaine LIPOSOME/PF 133 MG/10 ML VIAL IJ (06:44)
[2019-12-07] MEDS: Normal Saline 1,000 ML 150 ML IV (08:43)
[2019-12-07] MEDS: Pantoprazole 40 MG VIAL IVP (09:32)
[2019-12-07] MEDS: Lisinopril 5 MG TAB 2.5 MG PO (09:33)
[2019-12-07] MEDS: Aspirin 325 MG TAB PO (09:33)
[2019-12-07] MEDS: Carvedilol 12.5 MG TAB PO (09:34)
[2019-12-07] MEDS: Clopidogrel 75 MG TAB PO (09:34)
[2019-12-07] MEDS: Normal Saline Flush 10 ML SYR IVP (11:05)
--- NOTE | 2019-12-07 14:07 | DSE_ITS ---
Date of service: 12/07/19 Time of Service: 14:08 DS: Diagnosis Discharge Diagnosis (1) Acute appendicitis: Status: Acute Discharge Plan Disposition Patient Disposition: HOME Condition: Stable Discharge Details Chief Complaint: Abd Prob Clinical Impression: Acute appendicitis Reason For Visit: ACUTE APPENDICITIS, s/p laparoscopic appendectomy Admit Date/Time: 12/07/19 04:27 Admit Provider: Ynes Hammond Attending Provider: Ynes Hammond Primary Care Provider: Bruce Nelson ED Provider: Maged Delarosa Hospital Course Hospital Course: Mr. Martínez is a pleasant 64 year old male who came in to the ER last evening for RLQ abdominal pain. Workup in the ER revealed mild Leukocytosis and CT scan show ed appendicitis without rupture or abscess. he underwent a Laparoscopic Appendectomy at 6 am. Patient did very well postoperatively. At 14:00 he was up and walking and had eaten a soft diet without N/V or increased pain. He was discharged home. Follow up in 2 weeks. Home Meds and New Rx's Prescriptions: New acetaminophen [Tylenol] 325 mg tablet 650 mg PO ONCE PRN (Reason: fever or pain) Qty: 30 RF: 0 Continued clopidogrel 75 mg tablet 75 mg PO DAILY RF: 0 carvedilol 12.5 mg Tablet 12.5 mg PO DAILY RF: 0 aspirin 325 mg Tablet 325 mg PO DAILY RF: 0 nitroglycerin [Nitrostat] 0.4 mg Tablet, Sublingual 0.4 mg SUBLINGUAL .PRN CHEST PAIN RF: 0 lisinopril 2.5 mg Tablet 2.5 mg DAILY RF: 0 Discharge Instructions Instructions: Laparoscopic Appendectomy (DC) Additional Instructions: Activity at Home after surgery: 1. Make sure you walk outside at least 4 times per day 2. You should be able to climb a flight of stairs 3. No driving while in pain or taking pain medications 4. No strenuous activity or heavy lifting for 2 weeks (laparoscopic surgery) Diet, Nutrition, & wound healin. Avoid alcohol until after you are recovered from your surgery 2. Make sure to eat plenty of lean protein (meat, fish, eggs, cottage cheese, beans) 3. Eat a variety of fruits and vegetables. Eat plenty of high fiber foods to avoid constipation. 4. Drink plenty of liquids to stay hydrated and avoid constipation Pain Medications: 1. Tylenol 650 mg every 6 hours 2. If a narcotic has been prescribed take as directed only for breakthrough pain For Constipation: 1. Take Milk of Magnesia or MiraLax as needed for constipation Other: 1. You may shower daily. Do not scrub the incisions 2. Do not soak the incisions for 1 week 3. You may alternate ice and heat as needed for pain and swelling Wound Care: 1. Keep the incisions clean and dry 2. Remove dressings tomorrow. You may leave open to air or cover with a band-aid Please call our office if you develop: 1. Fevers >101.5 2. Nausea or Vomiting 3. Worsening pain 4. Redness and thick discharge from the wounds If after hours please call the Hospital at and ask to speak to the on-call surgeon Referrals: Ynes Hammond MD [ [facility] STAFF PHYSICIAN] - 12/20/19 11:00 am Activity:: no lifting, pulling or pushing >20 lb x 2 weeks Equipment/Supplies:: No Equipment Needed Diet:: As Tolerated Discharge Orders Discharge Orders: Discharge Order (Routine); Ordered 12/07/19 Ordered By: Ynes Hammond DS: Summary Status at Discharge Functional status at discharge: independent ambulation Overall status at discharge: patient is back to baseline Mental Status: mental status grossly normal Speech and Movement: speech and movement normal Mood: congruent mood Affect: normal affect Time Spent with Patient providing and/or coordinating discharge services: Less than 30 minutes Exam Const General: cooperative, comfortable and no acute distress Orientation: alert and oriented x3 HENMT Head: normocephalic and atraumatic Resp Effort & Inspection: normal respiratory effort Auscultation: clear to auscultation bilaterally Cardio Rate: regular rate Rhythm: regular rhythm Heart Sounds: no gallops, no murmurs and no rubs GI Inspection: incision (c/d/i) Palpation: soft and tender (appropriatly tender around incisions) Auscultation: normal bowel sounds Psych Mental Status: mental status grossly normal Speech and Movement: speech and movement normal Mood: congruent mood Affect: normal affect DS: Data Vitals/I&O Vitals and I&O: Vital Signs Temperature 97.5 F L 12/07/19 08:05 Temperature Source Tympanic 12/07/19 08:05 Pulse 61 12/07/19 12:02 Pulse 68 12/07/19 12:20 Respiratory Rate 19 12/07/19 12:20 Respiratory Effort 12/07/19 08:05 Respiratory Depth Normal 12/07/19 08:05 Respiratory Pattern Normal 12/07/19 08:05 Blood Pressure 100/58 L 12/07/19 12:02 Blood Pressure Mean 67 12/07/19 12:02 Pulse Oximetry 90 L 12/07/19 10:01 Respiratory End-tidal CO2 29 12/07/19 07:30 Oxygen Delivery Method Room Air 12/07/19 10:00 Oxygen Flow Rate 0 12/07/19 10:00 Pain Level 0 12/07/19 07:30 Intake & Output 12/06/19 12/07/19 12/07/19 23:59 11:59 23:59 Intake Total 1480 / 1480 Output Total 250 / 250 Balance 1230 / 1230 Weight 180 lb 1.883 oz Intake: IV 1000 / 1000 Oral 480 / 480 Output: Urine 250 / 250 Other: Urine Color Yellow Urine Appearance Clear Urine Odor None Stool Size Moderate Moderate Stool Characteristics Brown Liquid Emesis Description None Voiding Methods Bedside Commode Urinal Data Completed and Pending Labs on day of discharge: Labs from last 24 hours 12/07/19 12/07/19 12/07/19 03:55 03:15 03:15 WBC 13.87 H RBC 4.57 Hgb 14.6 Hct 42.5 MCV 93.0 MCH 31.9 MCHC 34.4 RDW 13.5 Plt Count 238 MPV 11.0 Immature Gran % 0.1 Neutrophils % 85.1 Lymphocytes % 7.1 Monocytes % 7.5 Eosinophils % 0.1 Basophils % 0.1 Absolute Neutrophils 11.80 H Absolute Lymphocytes 0.98 L Absolute Monocytes 1.04 H Absolute Eosinophils 0.01 Absolute Basophils 0.01 Sodium 138 Potassium 4.2 Chloride 102 Carbon Dioxide 29.0 Anion Gap 7.0 BUN 18 Creatinine 1.18 Estimated GFR/1.73 m2 >= 60.00 Glucose 132 H Calcium 8.7 Total Bilirubin 0.5 Conjugated Bilirubin 0.11 AST 22 ALT 16 Alkaline Phosphatase 71 Total Protein 7.7 Albumin 3.8 Lipase 230 Urine Color Yellow Urine Clarity Clear Urine pH 8.0 Ur Specific [place] 1.015 Urine Protein Negative Urine Ketones Negative Urine Blood Negative Urine Nitrite Negative Urine Bilirubin Negative Urine Urobilinogen 0.2 Ur Leukocyte Esterase Negative Urine Glucose Negative [facility] Medical History (Updated 12/07/19 @ 06:01 by Ynes Hammond MD) Cataplexy and narcolepsy (Inactive) Eosinophilia (Inactive) Fatigue (Inactive) Hyperlipidemia (Inactive) NSTEMI (non-ST elevated myocardial infarction) (Inactive) 10/18/2018 with stents X 4 at [facility] Restless legs syndrome (Inactive) Vitamin D deficiency (Inactive) Surgical History (Updated 12/07/19 @ 14:08 by Ynes Hammond MD) H/O heart artery stent (Chronic) x4 S/P laparoscopic appendectomy (Acute ~12/07/19) Social History (Updated 11/19/18 @ 09:45 by Amelia Ortega) Smoking/Tobacco Use Status: Former Tobacco Use Alcohol Intake: current Alcohol Intake frequency: 0-2 drinks per day Substance use type: does not use Do you feel safe at home: Yes Do you feel safe in your relationship?: Yes
--- NOTE | 2019-12-07 14:20 | PDOC.CMIN ---
- If Service Date Differs Date of service: 12/07/19 Time of Service: 14:20 Care Management Initial Assess REASON FOR HOSPITALIZATION:: appendicitis PAST MEDICAL HISTORY/PAST SURGICAL HISTORY:: Medical History (Updated 12/07/19 @ 06:01 by Ynes Hammond MD). Cataplexy and narcolepsy (Inactive). Eosinophilia (Inactive). Fatigue (Inactive). Hyperlipidemia (Inactive). NSTEMI (non-ST elevated myocardial infarction) (Inactive). 10/18/2018 with stents X 4 at [facility]. Restless legs syndrome (Inactive). Vitamin D deficiency (Inactive). Surgical History (Updated 12/07/19 @ 05:56 by Ynes Hammond MD). H/O heart artery stent (Chronic). x4 PREVIOUS FUNCTIONAL STATUS/SOCIAL/FAMILY SUPPORTS:: Yair lives in a single family home in [place] with his dog Bricks. 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 Yair is independent at baseline and receives no community services. CURRENT FUNCTIONAL STATUS:: Yair was sitting up in a chair when CM met with him. He was pleasant and friendly and open to conversation. Yair stated he is feeling much beter and has no pain at this time. He hopes to be discharged home soon. ADVANCE DIRECTIVES:: has pamphlet but has not completed. Has patient been provided with information about the portal?: Yes Did the patient sign up for the portal?: No CODE STATUS:: Full Code INSURANCE COVERAGE / FINANCIAL ISSUES:: Medicare CURRENT HOME/COMMUNITY SERVICES/EQUIPMENT:: none PRIMARY CARE PHYSICIAN:: Bruce Nieves in [place], [place] POTENTIAL DISCHARGE NEEDS:: Follow up with surgeon and discharge plan PATIENT/FAMILY EDUCATION NEEDS:: Discharge plan, limitations, follow up plan, Ask Me Three. TRANSPORTATION:: via private vehicle when ready PLAN:: Yair will be duscharged home with no new services. He will follow up with his surgeon, PCP and discharge planning needs. Yair will transport via private vehicle with friends.
--- NOTE | 2019-12-07 16:51 | NUR.NOTE ---
plate number [id number] reported to access as being left in ed parking lot for 1 night -pt unable to drive today, will turkey picker tomorrowNursing Note:
== END 2019-12-07 16:42 | disposition home or self-care (01) ==
LOC: DSU 08:08 → ER 08:08 → ICU 14:12
PROVIDERS: Admitting Provider Surgery; Emergency Provider Emergency Medicine; PCP Family Medicine; Visit Provider Surgery
PROC: 0DTJ4ZZ Resection of Appendix, Percutaneous Endoscopic Approach (ICD-10-PCS; CPT 44970; principal; 2019-12-07 06:00)
DX: K35.890 Other acute appendicitis without perforation or gangrene (principal); I25.10 Atherosclerotic heart disease of native coronary artery without angina pectoris; Z79.02 Long term (current) use of antithrombotics/antiplatelets; I25.2 Old myocardial infarction; Z95.5 Presence of coronary angioplasty implant and graft
CPT/HCPCS: 44970; 36415; 51702; 80053; 83690; 96365; 96375; 99220; 99223; 99285; NC; 74177; 81003; 82248; 85025; 88304; G0378; J1100; J2405; J2543; J2704; J3010; J3490

== ENCOUNTER 2019-12-08 07:48 | Emergency (ER) | payer MEDICARE, SELFPAY ==
[2019-12-08 07:55] VITALS: BP 113/79; PULSE 67; RESP 16; TEMP 35.9; O2SAT 96
--- NOTE | 2019-12-08 08:16 | ED.GENADUL_ITS ---
Discharge Plan Disposition Patient Disposition: HOME Condition: Improving Discharge Details Chief Complaint: Abd Prob Clinical Impression: Visit for wound check Primary Care Provider: Bruce Nelson ED Provider: Bruce Oglesby Home Meds and New Rx's Prescriptions: Continued clopidogrel 75 mg tablet 75 mg PO DAILY RF: 0 carvedilol 12.5 mg Tablet 12.5 mg PO DAILY RF: 0 aspirin 325 mg Tablet 325 mg PO DAILY RF: 0 nitroglycerin [Nitrostat] 0.4 mg Tablet, Sublingual 0.4 mg SUBLINGUAL .PRN CHEST PAIN RF: 0 lisinopril 2.5 mg Tablet 2.5 mg DAILY RF: 0 acetaminophen [Tylenol] 325 mg tablet 650 mg PO ONCE PRN (Reason: fever or pain) Qty: 30 RF: 0 Discharge Instructions Additional Instructions: Continue your regular medications. Return or call the surgery office should you develop a fever, increasing pain, bloating or constipation. You may develop increased bruising. Return to the ER for any acute concern. May progress to normal diet. Resume normal activities as tolerated. You may continue to have some lower abdominal wall discomfort over days time. May use your Tylenol as needed for discomfort. Medical Decision Making 64-year-old male who is postop day #1 status post laparoscopic appendectomy at 6 AM yesterday. He had some mild increasing left lower quadrant pain over hours time at home and this morning noticed a spot of blood in the left lower quadrant incision site dressing. He is well-appearing, vital signs are unremarkable, on exam he has discrete katrina-incisional tenderness and ecchymosis with trace crusted blood along the incision. Patient seen in consultation at the bedside by Dr. Goldsmith. Area redressed and patient counseled on expected course of resolution. Stable for discharge home. HPI General Mode of arrival: ambulatory . Date/Time Provider Initiated Documentation: 12/08/19 08:03 . Limitations to Documentation: no limitations . Information obtained by: patient . History of Present Illness 64 year old M presents to the emergency department with the chief complaint of Wound check, described as mild, Quality is described as dull, and is localized to the abdomen and left. Patient reports no radiation. Patient started experiencing this hour(s) and it has been now resolved. No relieving factors improve symptom(s), No exacerbating factors reported . Patient notes other (Formed brown stool); denies fever/chills and loss of appetite. Patient did receive the following treatments prior to arrival, none Related Data Home Medications Medication Instructions Recorded Confirmed aspirin 325 mg PO DAILY 10/18/18 12/08/19 carvedilol 12.5 mg PO DAILY 10/18/18 12/08/19 nitroglycerin [Nitrostat] 0.4 mg SUBLINGUAL .PRN CHEST PAIN 10/18/18 12/08/19 clopidogrel 75 mg tablet 75 mg PO DAILY 12/24/18 12/08/19 acetaminophen [Tylenol] 650 mg PO ONCE PRN #30 tab 12/07/19 12/08/19 lisinopril 2.5 mg DAILY 12/07/19 12/08/19 Previous Rx's Medication Instructions Recorded acetaminophen [Tylenol] 650 mg PO ONCE PRN #30 tab 12/07/19 Allergies Allergy/AdvReac Type Severity Reaction Status Date / Time Sulfa (Sulfonamide Allergy Unverified 12/08/19 07:59 Antibiotics) General Stated Complaint: Abd Prob FIDENCIO: 3 Review of Systems Narrative: 6 systems reviewed and otherwise negative [facility] Medical History Cataplexy and narcolepsy (Inactive) Eosinophilia (Inactive) Fatigue (Inactive) Hyperlipidemia (Inactive) NSTEMI (non-ST elevated myocardial infarction) (Inactive) 10/18/2018 with stents X 4 at [facility] Restless legs syndrome (Inactive) Vitamin D deficiency (Inactive) Surgical History (Updated 12/07/19 @ 14:08 by Ynes Hammond MD) H/O heart artery stent (Chronic) x4 S/P laparoscopic appendectomy (Acute ~12/07/19) Social History Smoking/Tobacco Use Status: Former Tobacco Use Alcohol Intake: current Alcohol Intake frequency: 0-2 drinks per day Substance use type: does not use Do you feel safe at home: Yes Do you feel safe in your relationship?: Yes Exam Narrative Exam Narrative: GEN: awake, alert, oriented 3. Pleasant, well groomed, interactive. HEAD: Normocephalic, atraumatic ENT: Mucous membranes moist, oropharynx unremarkable, External ear exam unremarkable EYES: PERRL, EOMI NECK: Full ROM, no COLIN, no menigismus CHEST/RESP: Nontender, clear to auscultation bilateral, no wheeze/rhonchi/rales CARDIOVASCULAR: RRR, no murmur, rub aljeandra. 2+ Rad pulse bilateral ABDOMEN: Soft, nontender, dressed surgical laparoscopic incisions, the left lower quadrant site has surrounding ecchymosis and when the Tegaderm is removed there is crusted blood in the incision but it is otherwise well-appearing without erythema, and no fluctuance. No mass. +Bowel sounds EXT: Full ROM, no edema, no rash Neuro: Grossly normal neurologic exam, conversant, interactive. Psych: Speech fluent, thoughts congruent, affect normal Course Vital Signs Vital signs: Vital Signs Temperature 35.9 C L 12/08/19 07:55 Pulse 67 12/08/19 07:55 Respiratory Rate 16 12/08/19 07:55 Blood Pressure 113/79 12/08/19 07:55 Pulse Oximetry 96 12/08/19 07:55 Temperature 35.9 C L 12/08/19 07:55 Temperature Source Skin 12/08/19 07:55 Pulse 67 12/08/19 07:55 Respiratory Rate 16 12/08/19 07:55 Respiratory Effort Non-Labored 12/08/19 07:55 Blood Pressure 113/79 12/08/19 07:55 Blood Pressure Position Sitting 12/08/19 07:55 Pulse Oximetry 96 12/08/19 07:55 Oxygen Delivery Method Room Air 12/08/19 07:55 Oxygen Flow Rate 0 12/08/19 07:55 Pain Level 3 12/08/19 07:55
== END 2019-12-08 08:50 | disposition home or self-care (01) ==
PROVIDERS: Emergency Provider Emergency Medicine; PCP Family Medicine
DX: R10.32 Left lower quadrant pain (principal); G89.18 Other acute postprocedural pain; Y83.6 Removal of other organ (partial) (total) as the cause of abnormal reaction of the patient, or of later complication, without mention of misadventure at the time of the procedure
CPT/HCPCS: 99282; 99283

== ENCOUNTER → 2019-12-20 10:30 | Outpatient (BNVA) | payer MEDICARE, SELFPAY | PROVIDERS: PCP Family Medicine; Referring Provider Family Medicine; Visit Provider Surgery | DX: Z48.815 Encounter for surgical aftercare following surgery on the digestive system (principal); Z90.49 Acquired absence of other specified parts of digestive tract ==

== ENCOUNTER 2023-12-24 07:35 | Emergency (ER) | payer MEDICARE, SELFPAY ==
[2023-12-24] VITALS (89 sets, daily range): BP systolic 97–188; BP diastolic 57–153; PULSE 42–146; RESP 9–24; TEMP 36.7; O2SAT 94–99
--- NOTE | 2023-12-24 07:25 | W.ED.GENAD ---
Discharge Plan Disposition Specific Acute Inpt Facility: [facility] Discharge Details Chief Complaint: Chest Pain Clinical Impression: Myocardial injury, Acute non-ST elevation myocardial infarction (NSTEMI) Primary Care Provider: Bruce Nelson ED Provider: Olu Doherty Home Meds and New Rx's Prescriptions: No Action nitroglycerin [Nitrostat] 0.4 mg Tablet, Sublingual 0.4 mg SUBLINGUAL .PRN CHEST PAIN HPI General Date/Time Provider Initiated Documentation: 12/24/23 07:37. HPI Narrative: MDM This is an overall very well appearing normothermic and not tachycardic 68-year-old male with coronary artery disease and concerning history with ECG meeting modified Concepcion criteria in lead V6 concerning for acute coronary syndrome. Furthermore patient has been off of his dual antiplatelet therapy making him higher risk for ACS. No tearing quality to suggest aortic dissection. No pain out of proportion to suggest necrotizing soft tissue infection. No right upper quadrant tenderness to suggest acute cholecystitis. No history of vomiting or alcoholism so doubt pancreatitis. No fevers nor cough to suggest pneumonia. No signs of lower extremity pitting edema and no shortness of breath to suggest acute heart failure. Given no shortness of breath nor hypoxia nor tachycardia my suspicion is low for PE so I did not send a D-dimer. Not hypotensive nor dialysis patient so my suspicion is low for tamponade. Equal breath sounds so doubt pneumothorax in the absence of trauma. No rash to chest to suggest zoster. No syncope nor black nor bloody stools. On echo patient does have poor EF. 8:[address] Reeder from cards at [facility]. He reports that he will speak with the interventional team and call back. 8:20 AM I spoke again with Dr. Reeder from cardiology at [facility]. He advised treating the patient as an NSTEMI with heparin drip and clopidogrel load at [address] Brigida Gallegos accepting physician. Patient was noted to have a rhythm change for which a twelve-lead ECG was obtained. 8:30 AM CBC lacks anemia thrombocytopenia and leukocytosis. 8:41 AM Troponin markedly elevated at 3668 ng/L. I updated transfer center at [facility] and requested they update cardiology of the patient's rhythm change had markedly abnormal troponin. Patient has 2 points of IV access, 18 and a 20-gauge IVs. Given his tachycardia I ordered 5mg of metoprolol. 9:30 AM Potassium mildly elevated at 5.2 for which patient will receive calcium gluconate. No RUBEN. Mild hyperglycemia. No anion gap normal bicarbonate?not consistent with DKA. Negative troponin. Chest x-ray with no acute cardiopulmonary process. 11:45 AM Troponin more than doubled. Patient remains chest pain-free. 2:39 PM Still awaiting bed at [facility]. I went to check on the patient. He was resting comfortably. Will continue to monitor. 4:10 PM Ordered maintenance fluids on the patient. I advance his diet given that he still pending transfer. Will sign patient out to Dr. Delarosa. Chronic conditions affecting the care of the patient: Coronary artery disease History obtained from an outside historian: Paramedics External record review: [facility] EMR Diagnostic interpretations performed by me: Per my independent interpretation chest x-ray shows: No acute cardiopulmonary process Per my independent interpretation EKG shows: Normal sinus rhythm at a rate of 81. Left axis deviation with left bundle branch block. Appears similar to prior in [facility] EMR record from 2019 with the exception of more pronounced lateral ST segment depressions. Not meeting Sgarbossa criteria but concerning for modified Concepcion criteria in V6 with discordant ST segment depression approximately 25% of the QRS complex. ECG #2 Left bundle branch block pattern with persistent lateral ST segment depressions. Now present are PVCs. Rate 101. QTc within normal limits. There does not appear to be a first-degree AV block. Persistent left bundle branch block. ECG #3 Sinus tachycardia at a rate of 134 with frequent PVCs with left bundle branch block. Not meeting Sgarbossa criteria. QTc prolonged at 526 ms. Medications: Clopidogrel heparin drip Social determinants of health affecting disposition: N/A Management discussed with: Cardiology at [facility] Treatment/interventions considered: Thrombolytics but deferred based on preference for cardiology at [facility] Response to therapies provided: Lytics but deferred based on recommendation from cardiology at [facility] HPI This is a 68-year-old male with known coronary artery disease off of his home medications arriving to the emergency department via paramedics in the setting of chest pain. Patient reports that his pain began at approximately midnight last night. He was watching a movie at the time. He describes a retrosternal chest pain that radiated into his left hand. It was associated with cold sweats and nausea. Not associated with shortness of breath cough nor fevers. Patient described the pain as indigestion. He denies pressure. He said it is worse with movement and improved with rest. He did not syncopized. He denies routine tobacco, ethanol, and illicits. He was at 324 mg of aspirin with paramedics. His pain was relieved at home by nitroglycerin of which he took 3 doses. He reports that he has not been adherent with his home medications and past year. No vomiting. Exam General: Well-appearing in no acute distress speaking in complete sentences. Head: Normocephalic, atraumatic. Eye: Extraocular eye movements intact. No conjunctival injection. No scleral icterus. Ear, nose, mouth, throat: Grossly normal inspection. Normal voice, handling secretions normally. Neck: Trachea midline. Cardiovascular: Well-perfused distal extremities. Regular rate and rhythm Respiratory: Nonlabored respiration. Clear lungs bilaterally Gastrointestinal: Nondistended abdomen. Musculoskeletal: No significant lower extremity pitting edema. Moving all 4 extremities spontaneously. Skin: Normal for age and race, grossly normal temperature and turgor. No acute rash. Neurologic: Alert and appropriate, no apparent acute deficits. Psychiatric: Mood and manner are appropriate. Grooming and personal hygiene are appropriate. Related Data Home Medications Medication Instructions Recorded Confirmed nitroglycerin 0.4 mg sublingual 0.4 mg sublingual .PRN CHEST PAIN 10/18/18 12/24/23 tablet (Nitrostat) Allergies Allergy/AdvReac Type Severity Reaction Status Date / Time Sulfa (Sulfonamide Allergy Mild Nausea Unverified 12/24/23 07:56 Antibiotics) General FIDENCIO: 3 Medical Decision Making Quality:SDOH Health Related Social Needs: No Data to Display Critical Care Time Critical Care Time Critical Care Time: Yes Total Critical Care Time: 30 Attestation: Bedside assessment, managing dysrhythmias and speaking with consultants [facility] All Active Problems (Updated 12/20/19 @ 07:56 by Ynes Hammond MD) Acute non-ST elevation myocardial infarction (NSTEMI) (Acute) Myocardial injury (Acute) S/P laparoscopic appendectomy (Acute ~12/07/19) Medical History (Updated 12/24/23 @ 16:11 by Olu Doherty MD) NSTEMI (non-ST elevated myocardial infarction) 10/18/2018 with stents X 4 at [facility] [place] Restless legs syndrome Fatigue Cataplexy and narcolepsy Vitamin D deficiency Eosinophilia Hyperlipidemia Surgical History (Updated 12/20/19 @ 07:56 by Ynes Hammond MD) H/O heart artery stent x4 Social History Smoking/Tobacco Use Status: Former Tobacco Use Quit Date: 09/28/00 Smoking risk assessment performed?: Yes Alcohol Intake: current Alcohol Intake frequency: 0-2 drinks per day Drug use: Never Substance use type: does not use Housing: house Do you feel safe at home: Yes Do you feel safe in your relationship?: Yes POCUS Exam (ED) Limited Cardiac Exam DATE OF EXAM: 12/24/23 TIME OF EXAM: 08:10 PROVIDER THAT PERFORMED THE STUDY: Olu Doherty IS THIS A REPEAT EXAM DURING THIS ENCOUNTER: no REASON FOR EXAM: Chest pain VISUALIZED STRUCTURES: Four Chambers, Left ventricle and LVOT VIEW OBTAINED: Apical 4-Chamber, Parasternal long-axis and Subxiphoid PERTINENT FINDINGS/IMPRESSION: LV dysfunction; No pericardial effusion INCIDENTAL FINDINGS: Aortic outflow track less than 4 cm, poor screws, RV less than LV, no significant pericardial effusion Exam complete
--- NOTE | 2023-12-24 07:30 | RT.EKG_ITS ---
APPROVED REPORT Exam: Resting ECG Reason for Exam: Chest pain Patient Location: E HR:81 bpm ECG Measurements Heart Rate 81 AXIS FL 186 P 78 QRSd 121 QRS -18 QT 379 T -89 QTc 439 Conclusion Sinus rhythm...normal P axis, V-rate 60- 99 Probable left atrial enlargement...P >50mS, <-0.10mV V1 Nonspecific intraventricular conduction delay...QRSd >115mS, not LBBB/RBBB Nonspecific repol abnormality, lateral leads...ST dep, T neg, I aVL V5 V6 Borderline ST elevation, anterior leads...ST >0.15mV in V1-V4 Normal sinus rhythm at a rate of 81. Left axis deviation with left bundle branch block. Appears sim ilar to prior in [facility] [place] record from 2019 with the exception of more pronounced lateral ST segment d epressions. Not meeting Sgarbossa criteria but concerning for modified Concepcion criteria in V6 with dis cordant ST segment depression approximately 25% of the QRS complex.
[2023-12-24 08:00] LABS: Source Nasal/Nares
--- NOTE | 2023-12-24 08:15 | RT.EKG_ITS ---
APPROVED REPORT Exam: Resting ECG Reason for Exam: rhythm change Patient Location: E HR:101 bpm ECG Measurements Heart Rate 101 AXIS HI [id number] P [id number] QRSd 117 QRS -13 QT 368 T 139 QTc 478 Conclusion Atrial flutter...A-rate 271 Ventricular tachycardia, unsustained...sequence of 3 or more V complexes Nonspecific intraventricular conduction delay...QRSd >115mS, not LBBB/RBBB Low voltage, extremity leads...all extremity leads <0.5mV Repol abnrm suggests ischemia, lateral leads...ST dep, T neg, I aVL V5 V6 Left bundle branch block pattern with persistent lateral ST segment depressions. Now present are PVC s. Rate 101. QTc within normal limits. There does not appear to be a first-degree AV block. Persi stent left bundle branch block.
[2023-12-24 08:20] LABS: Abs Immature Grans 0.04 10^3/uL (0.0-0.06); Absolute Basophil Count 0.03 10^3/uL (0.0-0.2); Absolute Eosinophil Count 0.16 10^3/uL (0.0-0.7); Absolute Lymphocyte Count 0.94 10^3/uL (1.2-3.4); Absolute Monocyte Count 0.58 10^3/uL (0.1-0.8); Absolute Neutrophil Count 7.45 10^3/uL (1.2-6.7); Basophils % 0.3; Eosinophils % 1.7; HCT 41.2 % (40.0-50.0); HGB 13.7 g/dL (13.5-17.5); Immature Grans % 0.4; Lymphocytes % 10.2; MCH 30.4 pg (27.0-33.0); MCHC 33.3 % (32.0-36.0); MCV 91 fL (80-95); MPV 11.4 fL (8.0-11.0); Monocytes % 6.3; Neutrophils % 81.1; Platelet Count 234 10^3/uL (130-400); RBC 4.51 10^6/uL (4.36-5.78); RDW 14.5 % (11.8-14.1); RDW-SD 48.4 fL
--- NOTE | 2023-12-24 08:22 | DI.RAD_ITS ---
Exam(s) XR PORTABLE CHEST AP EXAM: XR PORTABLE CHEST AP CLINICAL HISTORY: Chest pain TECHNIQUE: 2D digital imaging was performed of the chest. One image was obtained. An AP view was ob tained. COMPARISON: CR XR CHEST 2V PA LATERAL from 10/18/2018 FINDINGS: MEDIASTINUM: Normal. HEART: Normal. PULMONARY VASCULATURE: Normal. LUNGS: Clear. PLEURAL SPACE: No pleural effusion or pneumothorax. BONE:Within normal limits for the patient's age. OTHER FINDINGS:Normal. IMPRESSION: No acute pulmonary findings. DATA REPOSITORY: RADIATION DOSE DELIVERED:
--- NOTE | 2023-12-24 08:30 | RT.EKG_ITS ---
APPROVED REPORT Exam: Resting ECG Reason for Exam: cp Patient Location: E HR:134 bpm ECG Measurements Heart Rate 134 AXIS OK 138 P 105 QRSd 178 QRS -33 QT 352 T 184 QTc 526 Conclusion Sinus tachycardia with irregular rate...V-rate 94-172, variation>10% Left bundle branch block...QRSd>120, broad/notched R ST elevation secondary to IVCD...Multiple VCG criteria Sinus tachycardia at a rate of 134 with frequent PVCs and left bundle branch block pattern. Difficul t to appreciate previously seen ST segment depressions. Left axis deviation. OK within normal limit s. QTc is prolonged compared to prior.
[2023-12-24] MEDS: Clopidogrel 300 MG TAB PO (08:31)
[2023-12-24 08:34] LABS: ALT 14 U/L (16-63); AST 43 U/L (15-37); Albumin 3.9 g/dL (3.4-5.0); Alkaline Phosphatase 72 U/L (46-116); Anion Gap 10.7 mmol/L (3-11); BUN 25 mg/dL (7-18); Bilirubin, Total 0.6 mg/dL (0.2-1.0); CO2 26.3 mmol/L (21.0-32.0); CREATININE 1.2 mg/dL (0.70-1.30); Calcium 9.3 mg/dL (8.5-10.1); Chloride 102 mmol/L (98-107); Estimated GFR 66.28 (mL/min/1.73m2); Glucose 124 mg/dL (74-106); Potassium 5.2 mmol/L (3.5-5.1); Sodium 139 mmol/L (136-145); Total Protein 7.8 g/dL (6.4-8.2)
[2023-12-24 08:38] LABS: COVID-19 PCR Negative (Negative)
[2023-12-24 08:38] LABS: Troponin I 3668 ng/L (< or =60)
[2023-12-24] MEDS: Heparin in 0.45% NaCl 25,000 UNIT/250 ML BAG 0.12 UNIT IV (08:40)
--- NOTE | 2023-12-24 08:45 | RT.EKG_ITS ---
APPROVED REPORT Exam: Resting ECG Reason for Exam: Patient Location: E HR:94 bpm ECG Measurements Heart Rate 94 AXIS ND [id number] P [id number] QRSd 114 QRS 13 QT 362 T 252 QTc 453 Conclusion Atrial fibrillation...? atrial activity Ventricular tachycardia, unsustained...sequence of 3 or more V complexes Aberrant conduction of SV complex(es)...aberrant shape, ND 80-220 Low voltage, extremity leads...all extremity leads <0.5mV Nonspecific repol abnormality, lateral leads...ST dep, T neg, I aVL V5 V6
[2023-12-24] MEDS: Metoprolol 5 MG/5 ML VIAL IVP (08:49)
[2023-12-24 08:52] LABS: INR 1.1 (0.9-1.1); PTT Activated 26.5 sec (23.6-32.8); Prothrombin Time 10.6 sec (9.1-11.1)
[2023-12-24] MEDS: CALCIUM GLUCONATE in NaCl 1 GM/50 ML BAG IVPB (09:53)
[2023-12-24 11:37] LABS: Troponin I 8245 ng/L (< or =60)
[2023-12-24 16:11] LABS: INR 1.1 (0.9-1.1); PTT Activated 50.9 sec (23.6-32.8); Prothrombin Time 11.2 sec (9.1-11.1)
[2023-12-24 16:13] LABS: Anion Gap 9.4 mmol/L (3-11); BUN 22 mg/dL (7-18); CO2 25.6 mmol/L (21.0-32.0); CREATININE 1.1 mg/dL (0.70-1.30); Chloride 104 mmol/L (98-107); Estimated GFR 73.58 (mL/min/1.73m2); Glucose 109 mg/dL (74-106); Magnesium 2.2 mg/dL (1.8-2.4); Potassium 4.2 mmol/L (3.5-5.1); Sodium 139 mmol/L (136-145)
[2023-12-24 17:34] LABS: Troponin I 28954 ng/L (< or =60)
--- NOTE | 2023-12-24 18:22 | ED.PROG_ITS ---
Date of service: 12/24/23 Time of Service: 18:22 Medical Decision Making 68-year-old male signed out to me pending transfer to [facility] for NSTEMI. Has had small runs of V. tach, no symptoms during these. Repeat troponin 28,000, transfer center updated. Blood pressure 100/68, he is chest pain-free and state s he feels well. [facility] finally has a bed and will be transferred by medic. Lab Data Lab results reviewed: Yes I reviewed the patient's lab results. ECG Data Attestation: I personally reviewed and interpreted this ECG (s) as follows: Prior ECG tracings: available for review Interpretation: EKG at 1736 shows nonsustained V. tach, sinus with a rate of 94, no STEMI Quality:SDOH Health Related Social Needs: No Data to Display Sign Out Sign Out Data: Sign Out Comment: NSTEMI in a 68-year-old full code male with known coronary artery disease off of dual antiplatelet therapy except[place] to [facility] [place]. If patient develops tacky dysrhythmia he responded in the past to 5 mg of metoprolol IV. Repeat troponin and basic metabolic panel with magnesium pending. Last updated by Olu Doherty MD at 12/24/23 16:19 Discharge Plan Disposition Specific Acute Inpt Facility: [facility] Discharge Details Chief Complaint: Chest Pain Clinical Impression: Myocardial injury, Acute non-ST elevation myocardial infarction (NSTEMI) Primary Care Provider: Bruce Nelson ED Provider: Maged Delarosa Home Meds and New Rx's Prescriptions: No Action nitroglycerin [Nitrostat] 0.4 mg Tablet, Sublingual 0.4 mg SUBLINGUAL .PRN CHEST PAIN
--- NOTE | 2024-01-03 13:22 | NUR.NOTE ---
in chart checking the status of the ekgNursing Note:
--- NOTE | 2024-01-03 14:05 | NUR.NOTE ---
Accessed pt chart to reconcile EKG orders to the EKG's that are in [facility]. Assisted TAMIKA Duran, she cancelled the extra order. Nursing Note:
== END 2023-12-24 18:44 | disposition home or self-care (01) ==
PROVIDERS: Emergency Medicine; Emergency Provider Emergency Medicine; PCP Family Medicine
DX: I21.4 Non-ST elevation (NSTEMI) myocardial infarction (principal); I5A Non-ischemic myocardial injury (non-traumatic); I44.7 Left bundle-branch block, unspecified; I25.10 Atherosclerotic heart disease of native coronary artery without angina pectoris; Z11.52 Encounter for screening for COVID-19; Z95.5 Presence of coronary angioplasty implant and graft; Z87.891 Personal history of nicotine dependence
CPT/HCPCS: 00123; 36415; 80048; 80053; 87635; 93005; 93308; 96365; 99284; 71045; 83735; 84484; 85025; 85610; 85730; 93010; J0613; J1644

== ENCOUNTER 2024-01-22 11:05 | Outpatient (RCR) | payer MEDICARE, SELFPAY | END 2024-01-26 23:59 | disposition home or self-care (01) | LOC: CR 11:05 | PROVIDERS: PCP Family Medicine; Visit Provider Internal Medicine Cardiovascular Disease | DX: I21.4 Non-ST elevation (NSTEMI) myocardial infarction (principal); Z95.5 Presence of coronary angioplasty implant and graft; Z51.89 Encounter for other specified aftercare | CPT/HCPCS: S9472 ==

== ENCOUNTER 2025-02-06 17:27 | Emergency (ER) | payer MEDICARE, SELFPAY ==
[2025-02-06] VITALS (20 sets, daily range): BP systolic 104–124; BP diastolic 28–81; PULSE 107–125; RESP 25–34; TEMP 36.8; O2SAT 89–96
--- NOTE | 2025-02-06 17:15 | DI.RAD_ITS ---
Exam(s) XR PORTABLE CHEST AP EXAM: XR PORTABLE CHEST AP CLINICAL HISTORY: chest pain. TECHNIQUE: 2D digital imaging was performed. COMPARISON: CR XR PORTABLE CHEST AP from 12/24/2023 FINDINGS: Single AP portable view. Chest leads in place. There is mild cardiomegaly. The mediastinum is not widened. Pulmonary venous hypertension pattern and developing interstitial pulmonary edema. No obvious pleura l effusions on this single view. Findings may be somewhat exaggerated by portable AP technique IMPRESSION: Interstitial pulmonary edema. Please note findings may be exaggerated by portable AP technique. Rec ommend nonportable PA and lateral views when clinically possible. DATA REPOSITORY: RADIATION DOSE DELIVERED:
--- NOTE | 2025-02-06 17:15 | RT.EKG_ITS ---
APPROVED REPORT Exam: Resting ECG Reason for Exam: STEMI Patient Location: E HR:112 bpm ECG Measurements Heart Rate 112 AXIS FL 165 P 55 QRSd 114 QRS 92 QT 330 T 85 QTc 452 Conclusion Sinus tachycardia...rate> 99 Inferior infarct, acute...ST>0.10mV, T upright, II III aVF Probable anterolateral infarct, recent...Q>30mS,ST>0.1mV,T neg, V2-6,I,aVL
--- NOTE | 2025-02-06 17:32 | ED.GENADUL_ITS ---
Discharge Plan Disposition Specific Acute Inpt Facility: [facility] Condition: Critical Discharge Details Chief Complaint: Chest Pain Clinical Impression: ST elevation VA (STEMI) Primary Care Provider: Bruce Nelson ED Provider: Maged Delarosa Home Meds and New Rx's Prescriptions: No Action nitroglycerin [Nitrostat] 0.4 mg Tablet, Sublingual 0.4 mg SUBLINGUAL .PRN CHEST PAIN aspirin [Adult Aspirin Regimen] 81 mg tablet,delayed release (DR/EC) 81 mg PO DAILY clopidogrel 75 mg tablet 75 mg PO DAILY Patient Comments: TAKE ONE TABLET BY MOUTH ONCE DAILY rosuvastatin 40 mg tablet 40 mg PO HS Patient Comments: TAKE ONE TABLET BY MOUTH IN THE EVENING valsartan 40 mg tablet 40 mg PO BID Patient Comments: TAKE ONE TABLET BY MOUTH TWICE DAILY spironolactone 25 mg tablet 25 mg PO DAILY Patient Comments: TAKE ONE TABLET BY MOUTH ONCE DAILY HPI General Mode of arrival: EMS . Date/Time Provider Initiated Documentation: 02/06/25 17:29 . Limitations to Documentation: no limitations . Information obtained by: patient . History of Present Illness 70 year old M presents to the emergency department with the chief complaint of chest pain, described as severe, with intensity rated at 10. Quality is described as crushing, and is localized to the chest. Patient reports no radiation. Patient started experiencing this hour(s) (1.5) and it has been constant. No relieving factors improve symptom(s), No exacerbating factors reported . Patient notes no other symptoms.. Patient did receive the following treatments prior to arrival, none Related Data Home Medications ?Medication ?Instructions ?Recorded ?Confirmed nitroglycerin 0.4 mg sublingual 0.4 mg sublingual .PRN CHEST PAIN 10/18/18 02/06/25 tablet (Nitrostat) aspirin 81 mg tablet,delayed 81 mg PO DAILY 02/06/25 02/06/25 release (Adult Aspirin Regimen) clopidogrel 75 mg tablet 75 mg PO DAILY 02/06/25 02/06/25 rosuvastatin 40 mg tablet 40 mg PO HS 02/06/25 02/06/25 spironolactone 25 mg tablet 25 mg PO DAILY 02/06/25 02/06/25 valsartan 40 mg tablet 40 mg PO BID 02/06/25 02/06/25 Allergies Allergy/AdvReac Type Severity Reaction Status Date / Time Sulfa (Sulfonamide Allergy Mild Nausea Unverified 02/06/25 18:02 Antibiotics) General FIDENCIO: 2 Review of Systems All systems reviewed & are unremarkable except as noted in HPI and below Constitutional Constitutional: Denies chills, Denies fever(s) and Denies weakness Cardiovascular Cardiovascular: Reports chest pain and Denies dyspnea Respiratory Respiratory: Denies cough and Denies dyspnea Gastrointestinal Gastrointestinal: Denies abdominal pain, Denies nausea and Denies vomiting Integumentary/Breasts Skin/Breast: Denies rash Neurologic Neurologic: Denies weakness Exam Const General: no acute distress Orientation: alert HENMT Head: normal to inspection Ears: external ears normal General nose exam: external nose normal Mouth: moist mucous membranes Resp Effort & Inspection: normal respiratory effort and able to speak in complete sentences Auscultation: clear to auscultation bilaterally Cardio Jugular venous pressure: no JVD Rate: regular rate Heart Sounds: no murmurs Skin General skin exam: no rashes or lesions noted Neuro General: patient alert and patient oriented x3 Extrem General: normal to inspection Psych Mental Status: mental status grossly normal Medical Decision Making 70 yo male with hx of CAD [place] [facility] [place] with acute onset chest pain. He says he was doing some work on some wood when he started to suddenly to have severe chest pressure radiating into his left shoulder. Needed EKG reviewed by EMS and also on arrival here shows inferior STEMI. He is not to be hypoxic on 3 L nasal cannula is currently in the low 90s. He is alert and oriented x 4, has equal peripheral pulses and no tearing back pain so doubt dissection. He was given 324 mg of aspirin with EMS, they did give 2 sublingual nitro after he administered himself 1 dose, and he did have pressures in the high 80s after this. He is currently 119/72. I will hold on any further nitro given he became hypotensive with this. I discussed the risks and benefits of thrombolysis and he would like to proceed with this and has no absolute contraindications after discussion with him. [place] [facility] [place] case and agreed with thrombolysis and will start heparin 300 mg of Plavix. Plan for transfer by [facility] air crew. Accepting provider is Dr. Onofre Pt is on 40mg lasix and din't take his dose today, xray on my read shows some pulmonary edema so I am going to give a dose of IV Lasix. Patient feels better, has not had any concerning telemetry findings. Patient was transported by [facility] without complications. Differential Diagnosis Differential Diagnosis: stemi, acs Medical Records Medical records reviewed: Yes I reviewed the patient's medical records. Lab Data Lab results reviewed: Yes I reviewed the patient's lab results. ECG Data Attestation: I personally reviewed and interpreted this ECG (s) as follows: Prior ECG tracings: available for review Interpretation: sinus tachycardia, rate of 112 stemi inferior Quality:SDOH Health Related Social Needs: No Data to Display Critical Care Time Critical Care Time Critical Care Time: Yes Total Critical Care Time: 45 (minutes) Attestation: Time spent on frequent reassessments, hemodynamic monitoring, lab review in a patient with a STEMI requiring thrombolysis and the potential to deteriorate at any time. PFSH All Active Problems (Updated 12/20/19 @ 07:56 by Ynes Hammond MD) ST elevation VA (STEMI) (Acute) S/P laparoscopic appendectomy (Acute ~12/07/19) Medical History (Updated 02/06/25 @ 17:48 by Maged Delarosa MD) NSTEMI (non-ST elevated myocardial infarction) 10/18/2018 with stents X 4 at [facility] [place] Restless legs syndrome Fatigue Cataplexy and narcolepsy Vitamin D deficiency Eosinophilia Hyperlipidemia Surgical History (Updated 12/20/19 @ 07:56 by Ynes Hammond MD) H/O heart artery stent x4 Social History Smoking/Tobacco Use Status: Former Tobacco Use Quit Date: 09/28/00 Smoking risk assessment performed?: Yes Alcohol Intake: current Alcohol Intake frequency: a few times a month Alcohol type: beer Drug use: Never Substance use type: does not use Housing: house Do you feel safe at home: Yes Do you feel safe in your relationship?: Yes
[2025-02-06] MEDS: fentaNYL 100 MCG/2 ML VIAL 50 MCG IVP (17:39)
[2025-02-06] MEDS: Clopidogrel 300 MG TAB PO (17:39)
[2025-02-06 17:41] LABS: Abs Immature Grans 0.06 10^3/uL (0.0-0.06); Absolute Basophil Count 0.05 10^3/uL (0.0-0.2); Absolute Lymphocyte Count 2.46 10^3/uL (1.2-3.4); Absolute Monocyte Count 1.07 10^3/uL (0.1-0.8); Basophils % 0.4 %; Eosinophils % 2.6 %; HCT 39.6 % (40.0-50.0); HGB 12.9 g/dL (13.5-17.5); Immature Grans % 0.5 %; Lymphocytes % 18.6 %; MCHC 32.6 % (32.0-36.0); MCV 92 fL (80-95); MPV 10.9 fL (8.0-11.0); Monocytes % 8.1 %; Neutrophils % 69.8 %; Platelet Count 295 10^3/uL (130-400); RDW-SD 47.1 fL; WBC 13.25 10^3/uL (4.4-10.8)
[2025-02-06] MEDS: Normal Saline Flush 10 ML SYR IVP ×2 (17:41→17:57)
[2025-02-06 17:45] LABS: Absolute Eosinophil Count 0.34 10^3/uL (0.0-0.7); Absolute Neutrophil Count 9.25 10^3/uL (1.2-6.7)
[2025-02-06] MEDS: Tenecteplase 50 MG KIT 45 MG IVP (17:50)
[2025-02-06 17:54] LABS: INR 1.1 (0.9-1.1); Prothrombin Time 10.7 sec (9.1-11.1)
[2025-02-06] MEDS: Heparin in 0.45% NaCl 25,000 UNIT/250 ML BAG 10 UNIT IVINF (17:55)
[2025-02-06] MEDS: Furosemide 40 MG/4 ML VIAL IVP (17:56)
[2025-02-06 18:19] LABS: ALT 13 U/L (16-63); AST 21 U/L (15-37); Albumin 3.5 g/dL (3.4-5.0); Alkaline Phosphatase 77 U/L (46-116); Anion Gap 12.8 mmol/L (3-11); BUN 22 mg/dL (7-18); Bilirubin, Total 0.6 mg/dL (0.2-1.0); CO2 20.2 mmol/L (21.0-32.0); CREATININE 1.6 mg/dL (0.70-1.30); Calcium 8.7 mg/dL (8.5-10.1); Chloride 105 mmol/L (98-107); Estimated GFR 46.35 (mL/min/1.73m2); Glucose 184 mg/dL (74-106); Magnesium 1.8 mg/dL (1.8-2.4); Potassium 3.7 mmol/L (3.5-5.1); Sodium 138 mmol/L (136-145); TSH (W/Ref FT4) 2.77 uIU/mL (0.36-3.74); Total Protein 7.1 g/dL (6.4-8.2)
[2025-02-06 18:25] LABS: Troponin I 268 ng/L (<or=76)
[2025-02-06] MEDS: fentaNYL 100 MCG/2 ML VIAL 75 MCG IVP (18:27)
== END 2025-02-06 18:46 | disposition short-term general hospital (02) ==
LOC: ER 17:56
PROVIDERS: Emergency Provider Emergency Medicine; PCP Family Medicine
DX: I21.3 ST elevation (STEMI) myocardial infarction of unspecified site (principal)
CPT/HCPCS: 99291; 96375; 96376; 80053; 93005; 96365; 71045; 83735; 84443; 84484; 85025; 85610; 85730; 93010; J1644; J1938; J3010; J3101

== ENCOUNTER 2025-03-03 08:44 | Inpatient (IN) | payer MEDICARE, SELFPAY ==
[2025-03-03] VITALS (48 sets, daily range): BP systolic 86–116; BP diastolic 34–73; PULSE 91–108; RESP 11–32; TEMP 36.6–37; O2SAT 91–99
--- NOTE | 2025-03-03 08:45 | RT.EKG_ITS ---
APPROVED REPORT Exam: Resting ECG Reason for Exam: low BP, apnic episodes at night Patient Location: E HR:97 bpm ECG Measurements Heart Rate 97 AXIS SC 191 P 75 QRSd 130 QRS -24 QT 391 T 258 QTc 498 Conclusion Sinus rhythm...normal P axis, V-rate 60- 99 Ventricular premature complex...V complex w/ short R-R interval Nonspecific intraventricular conduction delay...QRSd >115mS, not LBBB/RBBB
--- NOTE | 2025-03-03 08:54 | ED.GENADUL_ITS ---
Discharge Plan Disposition Patient Disposition: Transfer-Acute Inpatient Care Specific Acute Inpt Facility: [facility] Condition: Stable Discharge Details Clinical Impression: Acute exacerbation of congestive heart failure, GI bleeding, Dehydration, Non- ST elevation PA (NSTEMI) Primary Care Provider: Olu Killian ED Provider: Brandyn Lopez Home Meds and New Rx's Prescriptions: No Action nitroglycerin [Nitrostat] 0.4 mg Tablet, Sublingual 0.4 mg SUBLINGUAL .PRN CHEST PAIN aspirin [Adult Aspirin Regimen] 81 mg tablet,delayed release (DR/EC) 81 mg PO DAILY clopidogrel 75 mg tablet 75 mg PO DAILY Patient Comments: TAKE ONE TABLET BY MOUTH ONCE DAILY rosuvastatin 40 mg tablet 40 mg PO HS Patient Comments: TAKE ONE TABLET BY MOUTH IN THE EVENING valsartan 40 mg tablet 20 mg PO DAILY Patient Comments: TAKE ONE TABLET BY MOUTH ONCE DAILY spironolactone 25 mg tablet 12.5 mg PO DAILY Patient Comments: TAKE ONE TABLET BY MOUTH ONCE DAILY Eliquis 5 mg tablet 5 mg PO BID Soaanz 40 mg tablet 40 mg PO DAILY HPI General Date/Time Provider Initiated Documentation: 03/03/25 08:53 . HPI Narrative: 70 year-old male presents to ED today by POV/ambulating with a chief complaint of increasing weakness, shortness of breath when laying flat that he equates with undiagnosed sleep apnea, s/p stents placed last [place] [facility] [place]. Quality described as shortness of breath when sleeping- especially flat, wakes up and gasps for air, cough with clear sputum, and has chest discomfort he eqauted with coughing- no active chest pain currently, no radiation to fever, productive cough with green sputum, chest pain, vomiting. Patient endorses nausea sometimes, endorses lightheadedness without diaphoresis. Denies any bowel / urinary changes. Severity is described as moderate. Palliating factors include nothing specific- recently started on torsemide and apixaban. Provoking factors include nothing specific. Events leading up to the incident/Associated Symptoms: Patient denies known history of CHF, but later endorses having an EF of 15%. After initially denying bowel changes- he later endorses black stools. Patient is anticoagulated. Related Data Home Medications ?Medication ?Instructions ?Recorded ?Confirmed nitroglycerin 0.4 mg sublingual 0.4 mg sublingual .PRN CHEST PAIN 10/18/18 03/03/25 tablet (Nitrostat) aspirin 81 mg tablet,delayed 81 mg PO DAILY 02/06/25 03/03/25 release (Adult Aspirin Regimen) clopidogrel 75 mg tablet 75 mg PO DAILY 02/06/25 03/03/25 rosuvastatin 40 mg tablet 40 mg PO HS 02/06/25 03/03/25 spironolactone 25 mg tablet 12.5 mg PO DAILY 02/06/25 03/03/25 valsartan 40 mg tablet 20 mg PO DAILY 02/06/25 03/03/25 apixaban 5 mg tablet (Eliquis) 5 mg PO BID 03/03/25 03/03/25 torsemide 40 mg tablet (Soaanz) 40 mg PO DAILY 03/03/25 03/03/25 Allergies Allergy/AdvReac Type Severity Reaction Status Date / Time Sulfa (Sulfonamide Allergy Mild Nausea Unverified 02/06/25 18:02 Antibiotics) General Stated Complaint: GenMedical FIDENCIO: 3 Review of Systems All systems reviewed & are unremarkable except as noted in HPI and below Exam Narrative Exam Narrative: GENERAL APPEARANCE: Well-nourished, non-toxic, awake and alert, atraumatic, no acute distress. SKIN: Warm, pale, dry, intact, without rashes/lesions/ulcerations. HEAD: Normocephalic, atraumatic, normal hair distribution for gender/age. EYES: Normal conjunctiva, no exudates on lids/lashes. ENT: Nares patent, no circumoral cyanosis, no facial swelling NECK: Supple, trachea midline, painless cervical ROM. LUNGS/CHEST: Lungs - fine crackles at bases, non-labored respirations, normal A/P diameter, symmetrical expansion, no chest wall deformity HEART (CV/PV): Regular rate and rhythm without murmur, no peripheral edema, no JVD, no carotid bruit bilaterally. ABDOMEN: Soft, non-distended, no guarding, no anasarca, no tenderness. MSK: Normal ROM, no swelling/deformity to bilateral UEs or LEs, moving all extremities without weakness, no cyanosis, spine midline without tenderness, normal curvature. NEURO: Mental Status AAOx4 - alert to person, place, time, events No facial droop, no forehead involvement. Motor: No focal weakness - strength 5/5 in bilateral UEs and LEs, proximal and distal, symmetric. Sensory: sensation intact to light touch globally. Gait normal: patient ambulated without ataxia into ED room. PSYCH: euthymic, cooperative, pleasant, appropriate speech Course Vital Signs Vital signs: Vital Signs Temperature 36.6 C 03/03/25 08:48 Pulse 96 H 03/03/25 08:48 Respiratory Rate 20 03/03/25 08:48 Blood Pressure 86/57 L 03/03/25 08:48 Pulse Oximetry 97 03/03/25 08:48 Temperature 36.6 C 03/03/25 08:48 Pulse 96 H 03/03/25 08:48 Respiratory Rate 20 03/03/25 08:48 Blood Pressure 86/57 L 03/03/25 08:48 Pulse Oximetry 97 03/03/25 08:48 Oxygen Delivery Method Room Air 03/03/25 08:48 Oxygen Flow Rate 0 03/03/25 08:48 Medical Decision Making This dictation utilizes [id number] dictation software and may contain unedited grammatical errors. 70 year-old male presents to ED today by POV/ambulating with a chief complaint of increasing weakness, shortness of breath when laying flat that he equates with undiagnosed sleep apnea, s/p stents placed last week at [facility] [place]. Quality described as shortness of breath when sleeping- especially flat, wakes up and gasps for air, cough with clear sputum, and has chest discomfort he eqauted with coughing- no active chest pain currently, no radiation to fever, productive cough with green sputum, chest pain, vomiting. Patient endorses nausea sometimes, endorses lightheadedness without diaphoresis. Denies any bowel / urinary changes. Severity is described as moderate. Palliating factors include nothing specific- recently started on torsemide and apixaban. Provoking factors include nothing specific. Events leading up to the incident/Associated Symptoms: Patient denies known history of CHF, but later endorses having an EF of 15%. After initially denying bowel changes- he later endorses black stools. Patients' medical history: States history of 5 heart attacks, hyperlipidemia, restless leg, history of appendectomy. Family and social history: Lives independently, denies smoking or EtOH intake. Pertinent exam findings / vital signs include nonlabored respirations, nonhypoxic, fine crackles at bases, no anasarca, benign cardiac exam, no carotid bruit, nontoxic and afebrile, mildly hypotensive on arrival at 86/57. Differential / pathologies of concern include CHF, ACS, PNA, Medication non- compliance, GI bleeding. Diagnostic studies of: - CBC, CMP, magnesium, BNP, serial troponins, EKG, XR chest. - CBC shows a mild elevation of 11.5 WBCs, hemoglobin 8.7, most recent value in our system in November was 12.9 -CMP shows some evidence of dehydration with BUN of 37, creatinine 1.5 - Magnesium within normal limits - BNP is significantly elevated at 7400 - Troponin stable around 100 - XR chest shows bilateral pleural effusions and questions a retrocardiac infiltrate, likely pulmonary edema from CHF - EKG shows sinus rhythm at 97 bpm, low voltage, PVC, poor R wave progression, left axis deviation, consistent with prior EKG, normal QT QTc- no STEMI Interventions of: -None, patient not requiring oxygen, has been compliant with home torsemide, no active chest pain. -Consulted with [facility] Cardiology POSITION CLASSIFICATION MANAGER Omar, we both agree patient is likely having worsening CHF after his recent PA, also GI bleeding. Needs ECHO, possibly EGD/colonoscopy, eval by advanced CHF team at [facility]. Accepting physician Dr. Gallegos @ [id number]. ED Course/Assessment/Plan: 70-year-old male presents with weakness, shortness of breath worse at night that he equates his sleep apnea without having a prior diagnosis of this, he had a recent PA with stents placed at [facility] [place] last week. The way he describes his shortness of breath I am suspicious for CHF as it is worse when he is laying flat ESQ clear productive sputum, he has no fever or other toxic signs or symptoms, he was unaware initially of his known CHF as he was recently seen by advanced CHF team at [facility] with an EF of 15%, he has dropped 2 g of hemoglobin this week I do suspect he has GI bleeding somewhere, after this was resulted I had repeat discussion with him and he endorsed black stools at this point in the visit. He has signs of pleural effusion and infiltrate on chest x-ray indicating acute exacerbation of congestive heart failure, he has elevated BUN and creatinine indicating a level of dehydration possibly leading to his recent addition of torsemide. He has no peripheral edema and no hypoxia at this time but he likely does need admission to the complex nature of his many chronic comorbidities and his acute exacerbation of heart failure. He may need EGD/colonoscopy, he definitively needs repeat echocardiogram. He has a significant troponin leak indicating a type II NSTEMI. Findings not consistent with STEMI, hypoxic respiratory failure secondary to CHF exacerbation, acute renal failure, shock. Disposition of acute exacerbation of congestive heart failure, GI bleeding, dehydration, Non-ST elevation PA (NSTEMI) Patient verbalized understanding of the plan and return to ED criteria and engaged in shared decision making. Medical Records Medical records reviewed: Yes I reviewed the patient's medical records. Imaging Data Radiologic Study: Attestation: I personally reviewed and interpreted this imaging study as follows: Imaging: X-Ray Radiologist's impression: EXAM: XR CHEST 2V PA LATERAL CLINICAL HISTORY: SOB; ?CHF. TECHNIQUE: 2D digital imaging was performed. COMPARISON: CR XR PORTABLE CHEST AP from 02/06/2025 FINDINGS: 2 views: Mild cardiomegaly again noted. The mediastinum is not widened. There is pulmonary venous hypertension pattern. There also small bilateral pleural effusions, more so than previous. There also appears to be some infiltrate in left lower lobe. IMPRESSION: Cardiomegaly. Small-moderate size bilateral pleural effusions, slightly larger on the right than the left. Consider pleural effusions possibly related to the recently present pulmonary edema is seen on chest x-ray of 02/06/2025. There also appears to be some probable infiltrate in the left lower lobe retrocardiac region. Lab Data Lab results reviewed: Yes I reviewed the patient's lab results. Labs: Laboratory Tests Range/Units 03/03/25 03/03/25 03/03/25 09:23 10:28 12:30 WBC (4.4-10.8) 10^3/uL 11.50 H RBC (4.36-5.78) 10^6/uL 2.91 L Hgb (13.5-17.5) g/dL 8.7 L Hct (40.0-50.0) % 27.1 L MCV (80-95) fL 93 MCH (27.0-33.0) pg 29.9 MCHC (32.0-36.0) % 32.1 RDW (11.8-14.1) % 16.1 H Plt Count (130-400) 10^3/uL 383 MPV (8.0-11.0) fL 10.8 Immature Gran % % 0.4 Neutrophils % % 83.4 Lymphocytes % % 7.9 Monocytes % % 7.2 Eosinophils % % 0.8 Basophils % % 0.3 Nucleated RBC % (0.0-0.3) % 0.0 Absolute Neutrophils (1.2-6.7) 10^3/uL 9.59 H Absolute Lymphocytes (1.2-3.4) 10^3/uL 0.91 L Absolute Monocytes (0.1-0.8) 10^3/uL 0.83 H Absolute Eosinophils (0.0-0.7) 10^3/uL 0.09 Absolute Basophils (0.0-0.2) 10^3/uL 0.03 Sodium (136-145) mmol/L 133 L Potassium (3.5-5.1) mmol/L 4.0 Chloride (98-107) mmol/L 94 L Carbon Dioxide (21.0-32.0) mmol/L 31.1 Anion Gap (3-11) mmol/L 7.9 BUN (7-18) mg/dL 37 H Creatinine (0.70-1.30) mg/dL 1.5 H Est GFR (CKD-EPI 2020) (mL/min/1.73m2) 50.08 Glucose (74-106) mg/dL 147 H Calcium (8.5-10.1) mg/dL 9.4 Magnesium (1.8-2.4) mg/dL 2.2 Total Bilirubin (0.2-1.0) mg/dL 0.8 AST (15-37) U/L 24 ALT (16-63) U/L 15 L Alkaline Phosphatase (46-116) U/L 78 Troponin I (<or=76) ng/L 111 H* 100 H* 104 H* NT-Pro-B Natriuret Pep (<300) pg/mL 7421 H Total Protein (6.4-8.2) g/dL 7.5 Albumin (3.4-5.0) g/dL 3.8 Quality:SDOH Health Related Social Needs: No Data to Display PFSH All Active Problems (Updated 12/20/19 @ 07:56 by Ynes Hammond MD) Non-ST elevation PA (NSTEMI) (Acute) Dehydration (Acute) GI bleeding (Chronic) Acute exacerbation of congestive heart failure (Acute) ST elevation PA (STEMI) (Acute) S/P laparoscopic appendectomy (Acute ~12/07/19) Medical History (Updated 03/03/25 @ 13:40 by ALTON Maldonado) NSTEMI (non-ST elevated myocardial infarction) 10[place]18/[place] [facility] [place] Restless legs syndrome Fatigue Cataplexy and narcolepsy Vitamin D deficiency Eosinophilia Hyperlipidemia Surgical History (Updated 12/20/19 @ 07:56 by Ynes Hammond MD) H/O heart artery stent x4 Social History Smoking/Tobacco Use Status: Former Tobacco Use Quit Date: 09/28/00 Smoking risk assessment performed?: Yes Alcohol Intake: current Alcohol Intake frequency: holidays/special occasions only Alcohol type: beer Drug use: Never Substance use type: does not use Housing: house Do you feel safe at home: Yes Do you feel safe in your relationship?: Yes
[2025-03-03 09:36] LABS: Abs Immature Grans 0.05 10^3/uL (0.0-0.06); Absolute Basophil Count 0.03 10^3/uL (0.0-0.2); Absolute Eosinophil Count 0.09 10^3/uL (0.0-0.7); Absolute Lymphocyte Count 0.91 10^3/uL (1.2-3.4); Absolute Monocyte Count 0.83 10^3/uL (0.1-0.8); Absolute Neutrophil Count 9.59 10^3/uL (1.2-6.7); Basophils % 0.3 %; Eosinophils % 0.8 %; HCT 27.1 % (40.0-50.0); HGB 8.7 g/dL (13.5-17.5); Immature Grans % 0.4 %; Lymphocytes % 7.9 %; MCH 29.9 pg (27.0-33.0); MCHC 32.1 % (32.0-36.0); MCV 93 fL (80-95); MPV 10.8 fL (8.0-11.0); Monocytes % 7.2 %; Neutrophils % 83.4 %; Platelet Count 383 10^3/uL (130-400); RBC 2.91 10^6/uL (4.36-5.78); RDW 16.1 % (11.8-14.1); RDW-SD 52.5 fL
[2025-03-03 10:02] LABS: ALT 15 U/L (16-63); AST 24 U/L (15-37); Albumin 3.8 g/dL (3.4-5.0); Alkaline Phosphatase 78 U/L (46-116); Anion Gap 7.9 mmol/L (3-11); BUN 37 mg/dL (7-18); Bilirubin, Total 0.8 mg/dL (0.2-1.0); CO2 31.1 mmol/L (21.0-32.0); CREATININE 1.5 mg/dL (0.70-1.30); Calcium 9.4 mg/dL (8.5-10.1); Chloride 94 mmol/L (98-107); Estimated GFR 50.08 (mL/min/1.73m2); Glucose 147 mg/dL (74-106); Magnesium 2.2 mg/dL (1.8-2.4); NT-proBNP 7421 pg/mL (<300); Sodium 133 mmol/L (136-145); Total Protein 7.5 g/dL (6.4-8.2)
[2025-03-03 10:06] LABS: Troponin I 111 ng/L (<or=76)
--- NOTE | 2025-03-03 10:44 | DI.RAD_ITS ---
Exam(s) XR CHEST 2V PA LATERAL EXAM: XR CHEST 2V PA LATERAL CLINICAL HISTORY: SOB; ?CHF. TECHNIQUE: 2D digital imaging was performed. COMPARISON: CR XR PORTABLE CHEST AP from 02/06/2025 FINDINGS: 2 views: Mild cardiomegaly again noted. The mediastinum is not widened. There is pulmonary venous hypertensi on pattern. There also small bilateral pleural effusions, more so than previous. There also appears to be some infiltrate in left lower lobe. IMPRESSION: Cardiomegaly. Small-moderate size bilateral pleural effusions, slightly larger on the right than the left. Consider pleural effusions possibly related to the recently present pulmonary edema is seen o n chest x-ray of 02/06/2025. There also appears to be some probable infiltrate in the left lower lobe retrocardiac region. DATA REPOSITORY: RADIATION DOSE DELIVERED:
[2025-03-03 11:10] LABS: Troponin I 100 ng/L (<or=76)
[2025-03-03 12:56] LABS: Troponin I 104 ng/L (<or=76)
[2025-03-03] MEDS: Ondansetron O.D.T. 4 MG TABEF PO (15:23)
[2025-03-03 16:48] LABS: HCT 25.5 % (40.0-50.0); HGB 8.1 g/dL (13.5-17.5)
--- NOTE | 2025-03-03 17:55 | ED.PROG_ITS ---
Date of service: 03/03/25 Time of Service: 17:55 Medical Decision Making Patient was boarding in the emergency department awaiting a bed placement at [facility] for admission to the cardiology service. I was made aware of his lowering blood pressures and increasing heart rate. I sent off a repeat hemoglobin which did note a small drop. Given his vital sign derangement and this persistent drop in his hemoglobin, I considered blood transfusion however the patient declines at this time because he states that he does not want blood from someone that may have gotten the COVID shot because he is not into that COVID shit. I contacted cardiology at [facility]. They recommend holding the aspirin and Eliquis, continuing Plavix. Norepinephrine infusion if needed for blood pressure stabilization. Patient would benefit most from blood transfusion. given that there is not going to be a bed available this evening, the patient will be admitted to the hospital service here until bed is available at [facility]. Quality:SDOH Health Related Social Needs: No Data to Display Discharge Plan Disposition Patient Disposition: Transfer-Acute Inpatient Care Specific Acute Inpt Facility: [facility] Condition: Stable Discharge Details Clinical Impression: Acute exacerbation of congestive heart failure, GI bleeding, Dehydration, Non- ST elevation [place] (NSTEMI) Primary Care Provider: Olu Killian ED Provider: Brandyn Lopez Home Meds and New Rx's Prescriptions: No Action nitroglycerin [Nitrostat] 0.4 mg Tablet, Sublingual 0.4 mg SUBLINGUAL .PRN CHEST PAIN aspirin [Adult Aspirin Regimen] 81 mg tablet,delayed release (DR/EC) 81 mg PO DAILY clopidogrel 75 mg tablet 75 mg PO DAILY Patient Comments: TAKE ONE TABLET BY MOUTH ONCE DAILY rosuvastatin 40 mg tablet 40 mg PO HS Patient Comments: TAKE ONE TABLET BY MOUTH IN THE EVENING valsartan 40 mg tablet 20 mg PO DAILY Patient Comments: TAKE ONE TABLET BY MOUTH ONCE DAILY spironolactone 25 mg tablet 12.5 mg PO DAILY Patient Comments: TAKE ONE TABLET BY MOUTH ONCE DAILY Eliquis 5 mg tablet 5 mg PO BID Soaanz 40 mg tablet 40 mg PO DAILY
--- NOTE | 2025-03-03 18:46 | NUR.NOTE ---
Nursing Note: PT refused Blood transfusion told this nurse he does not want to receive blood from anyone who has had a covid vaccine
[2025-03-03 19:09] LABS: HGB 8.2 g/dL (13.5-17.5); MCH 29.6 pg (27.0-33.0); MCHC 31.5 % (32.0-36.0); MCV 94 fL (80-95); MPV 10.2 fL (8.0-11.0); Platelet Count 327 10^3/uL (130-400); RBC 2.77 10^6/uL (4.36-5.78); RDW 16.2 % (11.8-14.1); RDW-SD 52.8 fL; WBC 9.87 10^3/uL (4.4-10.8)
[2025-03-03 19:21] LABS: INR 1.3 (0.9-1.1); Prothrombin Time 12.7 sec (9.1-11.1)
--- NOTE | 2025-03-03 20:13 | W.PM.HP.N ---
Date of service: 03/03/25 Time of Service: 20:13 Assessment and Plan Assessment and plan (1) GI bleeding: Start date: 03/10/25 Status: Acute Assessment and plan: This is a 70-year-old gentleman recently with transferred to [facility] from this institution for treatment of acute STEMI with stenting. Patient was already on aspirin and Plavix and apixaban was added because of atrial fibrillation. He has been having increasing symptoms the last couple days and is found to have anemia which is acute blood loss anemia most likely secondary to his triple therapy for anticoagulation. He states he has had some nausea and melena but no hematemesis no bright blood per rectum. His hemoglobin is above 8 g/dL though he is symptomatic and patient is refusing transfusion for now. He has been typed and screened. He will be transferred to [facility] cardiology with Dr. El kirkland. May need surgical consultation for colonoscopy but the CHF team will try to stabilize his heart failure. He believes he was started on torsemide which is new along with the apixaban. He is a DNR/DNI. (2) Acute exacerbation of congestive heart failure: Start date: 03/03/25 Status: Acute Assessment and plan: Patient has an elevated BNP and cardiomegaly with question of exacerbation of CHF though clinically this appears to have been a slow progression. His heart failure may be worsened by his acute anemia. Transfusion may be helpful. (3) Dehydration: Start date: 03/03/25 Status: Acute Assessment and plan: The ED provider thought patient may have appeared dehydrated and this also may be blood loss anemia causing this appearance. Transfusion would be helpful. (4) Non-ST elevation RI (NSTEMI): Start date: 03/03/25 Status: Acute Assessment and plan: Patient does have slight elevation of his troponins but stable and trending down. This most likely is nonsignificant and not acute cardiac ischemia. [facility] cardiology can reassess. History of Present Illness History of Present Illness Chief Complaint: Increasing dyspnea especially when lying flat and weakness, recent STEMI Narrative: This is a 70-year-old male patient recently diagnosed with STEMI and transferred from this ED in late January 2025 for treatment with stenting. This appeared to be an acute inferior RI. He has a history of CHF with a decreased level ejection fraction reportedly ED provider as around 15%. He has had multiple MIs in the past. He reports that he has shortness of breath when lying flat and wakes up gasping for air think that he has sleep apnea. He has a cough with clear sputum he does have chest discomfort with coughing but no active chest pain as with his angina. He denies any fever. He denies any change in sputum color. He has no GI symptoms other than nausea without vomiting and did not report melena or black stools recently. He does endorse being lightheaded but no diaphoresis and no exertional chest pain. Patient has recently been started on torsemide and apixaban and does have a history of atrial fibrillation associated with his heart disease. He had had no change in diet but is on Plavix, aspirin and apixaban with most likely upper GI bleed with melena. He is symptomatic with his anemia but refuses to have red blood cell infusion if the blood bank cannot assure him that the donor did not receive the COVID-vaccine the ED physician did call [facility] for transfer and Dr. Gallegos excepted patient to the advanced CHF team with cardiology. He will need an echocardiogram and possibly a colonoscopy. He took his Eliquis the morning of admission but Eliquis and aspirin are being held. Patient was on Plavix and aspirin prior to his recent STEMI and that was a consequence of his previous non-STEMI in 2023. He is a DNR/DNI. Review of Systems Narrative: 13 point review of systems otherwise unrevealing or stable. Patient has had no peripheral edema. He may be describing PND with his nighttime shortness of breath. PFSH All Active Problems Non-ST elevation RI (NSTEMI) (Acute) Dehydration (Acute) GI bleeding (Acute) Acute exacerbation of congestive heart failure (Acute) ST elevation RI (STEMI) (Acute) S/P laparoscopic appendectomy (Acute ~12/07/19) Medical History (Updated 03/03/25 @ 20:19 by Kin Sotomayor) NSTEMI (non-ST elevated myocardial infarction) 10/18/2018 with stents X 4 at [facility] Restless legs syndrome Fatigue Cataplexy and narcolepsy Vitamin D deficiency Eosinophilia Hyperlipidemia Surgical History H/O heart artery stent x4 Social History (Reviewed 03/03/25 @ 20:13 by Kin Mendoza Smoking/Tobacco Use Status: Former Tobacco Use Quit Date: 09/28/00 Smoking risk assessment performed?: Yes Alcohol Intake: current Alcohol Intake frequency: holidays/special occasions only Alcohol type: beer Drug use: Never Substance use type: does not use Housing: apartment Do you feel safe at home: Yes Do you feel safe in your relationship?: Yes Meds Allergies and Home Medications Allergies Allergy/AdvReac Type Severity Reaction Status Date / Time Sulfa (Sulfonamide Allergy Mild Nausea Unverified 02/06/25 18:02 Antibiotics) Home Medications ?Medication ?Instructions ?Recorded ?Confirmed ?Type nitroglycerin 0.4 mg sublingual 0.4 mg sublingual .PRN CHEST PAIN 10/18/18 03/03/25 History tablet (Nitrostat) aspirin 81 mg tablet,delayed 81 mg PO DAILY 02/06/25 03/03/25 History release (Adult Aspirin Regimen) clopidogrel 75 mg tablet 75 mg PO DAILY 02/06/25 03/03/25 History rosuvastatin 40 mg tablet 40 mg PO HS 02/06/25 03/03/25 History spironolactone 25 mg tablet 12.5 mg PO DAILY 02/06/25 03/03/25 History valsartan 40 mg tablet 20 mg PO DAILY 02/06/25 03/03/25 History apixaban 5 mg tablet (Eliquis) 5 mg PO BID 03/03/25 03/03/25 History torsemide 40 mg tablet (Soaanz) 40 mg PO DAILY 03/03/25 03/03/25 History Exam Narrative Exam Narrative: General: Patient appears appropriate for age, alert and oriented x 3 and in no acute distress. HEENT: Normocephalic, eyes with pupils equal and reactive light symmetrically, extraocular movement intact and sclera anicteric. Oropharynx with moist mucosa and fair dentition. Neck: Supple without JVD. Back: Kyphotic without CVA tenderness. Lungs: Fair aeration and clear to auscultation percussion with no focalizing rales or rhonchi. No decreased aeration over the left base. No dullness to percussion. Heart: Regular rate and rhythm with no murmurs gallops appreciated. Distant heart sounds. Abdomen: Soft with normal contour, no guarding or rebound. Nontender. No palpable hepatosplenomegaly. Bowel sounds positive all quadrants. Genitalia/rectal: Exam deferred. Extremities: Without clubbing, cyanosis or pitting edema. Fair capillary refill. Skin: Pale, warm and dry. Neuro: Cranial nerves II through XII gross intact, no focalized motor deficits and no tremor. Psych: Normal affect and mood. No abnormal thought processes. Remote and recent memory intact. Results Imaging Imaging Studies: EXAM: XR CHEST 2V PA LATERAL And exam: 03/03/2025 CLINICAL HISTORY: SOB; ?CHF. TECHNIQUE: 2D digital imaging was performed. COMPARISON: CR XR PORTABLE CHEST AP from 02/06/2025 FINDINGS: 2 views: Mild cardiomegaly again noted. The mediastinum is not widened. There is pulmonary venous hypertension pattern. There also small bilateral pleural effusions, more so than previous. There also appears to be some infiltrate in left lower lobe. IMPRESSION: Cardiomegaly. Small-moderate size bilateral pleural effusions, slightly larger on the right than the left. Consider pleural effusions possibly related to the recently present pulmonary edema is seen on chest x-ray of 02/06/2025. There also appears to be some probable infiltrate in the left lower lobe retrocardiac region. Labs 03/03/25 19:03 03/03/25 09:23 Labs: Laboratory Results - last 24 hr 03/03/25 03/03/25 03/03/25 09:23 10:28 12:30 WBC 11.50 H RBC 2.91 L Hgb 8.7 L Hct 27.1 L MCV 93 MCH 29.9 MCHC 32.1 RDW 16.1 H Plt Count 383 MPV 10.8 Immature Gran % 0.4 Neutrophils % 83.4 Lymphocytes % 7.9 Monocytes % 7.2 Eosinophils % 0.8 Basophils % 0.3 Nucleated RBC % 0.0 Absolute Neutrophils 9.59 H Absolute Lymphocytes 0.91 L Absolute Monocytes 0.83 H Absolute Eosinophils 0.09 Absolute Basophils 0.03 PT INR Sodium 133 L Potassium 4.0 Chloride 94 L Carbon Dioxide 31.1 Anion Gap 7.9 BUN 37 H Creatinine 1.5 H Est GFR (CKD-EPI 2020) 50.08 Glucose 147 H Calcium 9.4 Magnesium 2.2 Total Bilirubin 0.8 AST 24 ALT 15 L Alkaline Phosphatase 78 Troponin I 111 H* 100 H* 104 H* NT-Pro-B Natriuret Pep 7421 H Total Protein 7.5 Albumin 3.8 03/03/25 03/03/25 14:36 19:03 WBC 9.87 RBC 2.77 L Hgb 8.1 L 8.2 L Hct 25.5 L 26.0 L MCV 94 MCH 29.6 MCHC 31.5 L RDW 16.2 H Plt Count 327 MPV 10.2 Immature Gran % Neutrophils % Lymphocytes % Monocytes % Eosinophils % Basophils % Nucleated RBC % Absolute Neutrophils Absolute Lymphocytes Absolute Monocytes Absolute Eosinophils Absolute Basophils PT 12.7 H INR 1.3 H Sodium Potassium Chloride Carbon Dioxide Anion Gap BUN Creatinine Est GFR (CKD-EPI 2020) Glucose Calcium Magnesium Total Bilirubin AST ALT Alkaline Phosphatase Troponin I NT-Pro-B Natriuret Pep Total Protein Albumin Last Vital Signs Temp 37.0 C 03/03/25 19:21 Pulse 98 H 03/03/25 19:21 Resp 23 03/03/25 18:46 BP 95/57 L 03/03/25 19:21 Pulse Ox 95 03/03/25 17:30 Time Spent Time spent with Patient: >75 minutes Time was spent: preparing to see the patient(eg.review tests), obtaining and/or reviewing separately otained hiistory, ordering medications,tests, procedures, referring, communicating with other health critical care educator, indepentently interpreting results, counseling the patient and care coordination
[2025-03-03] MEDS: Rosuvastatin 20 MG TAB 40 MG PO (21:22)
[2025-03-03] MEDS: Normal Saline Flush 10 ML SYR IVP (21:22)
--- NOTE | 2025-03-03 21:24 | DSE_ITS ---
Date of service: 03/03/25 Time of Service: 21:28 DS: Diagnosis Discharge Diagnosis (1) GI bleeding: Start date: 03/03/25 Status: Acute Asessment and Plan: Patient presented with hemoglobin dropped to 8 g/dL and symptoms of shortness of breath and weakness which were nonprogressive. He had melena at home and some nausea with no abdominal pain. He was toppings crossed but refused transfusion. He did not appear to be actively bleeding and was asymptomatic at rest. He has been transferred to [facility] cardiology service with surgical consultation with apixaban aspirin to be held. Plavix will be continued with recent STEMI. (2) Acute exacerbation of congestive heart failure: Status: Acute Asessment and Plan: Patient will need to adjust therapy at [facility] with CHF team in cardiology to review. (3) Dehydration: Status: Acute Asessment and Plan: Patient appears slightly dehydrated though he is not in exacerbation of CHF with blood loss anemia. Transfusion with Eliquis. (4) Non-ST elevation FL (NSTEMI): Status: Acute Asessment and Plan: Patient troponins were slightly elevated but stable and plateauing if not decreasing. He is asymptomatic as far as cardiac ischemia. Discharge Plan Disposition Specific Acute Inpt Facility: [facility] Condition: Stable Condition: Stable Discharge Details Reason For Visit: NSTEMI, GIB Admit Date/Time: 03/03/25 17:59 Admit Provider: Olu Contreras Attending Provider: Olu Contreras Primary Care Provider: Olu Killian [place] [facility] Course Hospital Course: This is a 70-year-old gentleman who was hospitalized for acute blood loss anemia with melena, slight nausea and question of upper GI bleed with gastritis. Livan parekh was given 1 dose Protonix IV and his apixaban and aspirin will be held though he did take his apixaban and aspirin dose the day of presentation. He will continue on Plavix per [facility]. See H&P history and physical exam for details which were done just prior to transfer with no change in history or physical at discharge. Patient was comfortable and not having nausea and was not coughing. Chest x-ray did suggest retrocardiac infiltrate but exam did not reveal any left lower lung findings the patient not having leukocytosis but second CBC prior. He had no fever. He had no changes sputum. He was not initiated on antibiotics. He will be transferred to [facility] cardiology service with Dr. El kirkland. Surgery consultation at [facility] may be necessary for colonoscopy. Patient is refusing transfusion at this point but is not progressing with symptoms. He is a DNR/DNI. Home Meds and New Rx's Prescriptions: No Action nitroglycerin [Nitrostat] 0.4 mg Tablet, Sublingual 0.4 mg SUBLINGUAL .PRN CHEST PAIN aspirin [Adult Aspirin Regimen] 81 mg tablet,delayed release (DR/EC) 81 mg PO DAILY clopidogrel 75 mg tablet 75 mg PO DAILY Patient Comments: TAKE ONE TABLET BY MOUTH ONCE DAILY rosuvastatin 40 mg tablet 40 mg PO HS Patient Comments: TAKE ONE TABLET BY MOUTH IN THE EVENING valsartan 40 mg tablet 20 mg PO DAILY Patient Comments: TAKE ONE TABLET BY MOUTH ONCE DAILY spironolactone 25 mg tablet 12.5 mg PO DAILY Patient Comments: TAKE ONE TABLET BY MOUTH ONCE DAILY Eliquis 5 mg tablet 5 mg PO BID Soaanz 40 mg tablet 40 mg PO DAILY Discharge Instructions Activity:: Bedrest Activity:: Bedrest Equipment/Supplies:: No Equipment Needed Diet:: Heart healthy DS: Summary Time Spent with Patient providing and/or coordinating discharge services: Less than 30 minutes Status at Discharge Functional status at discharge: bed bound Overall status at discharge: patient is not back to baseline Mental Status: mental status grossly normal Speech and Movement: speech and movement normal Mood: congruent mood Affect: normal affect Quality:SDOH Health Related Social Needs: Health related social needs food insecurity (Z59.41), problems related to housing/economic circumstances (Z59.89), problems with daily activities (Z73.9), feeling lonely/isolated (Z60.8) Health related social needs details Getting around in the future may become a minor problem I have a lot of people who would help, but I don't like depending on others to solve problems for me. Health related social needs details: Getting around in the future may become a minor problem I have a lot of people who would help, but I don't like depending on others to solve problems for me. Exam Narrative Exam Narrative: Physical exam unchanged from admission, see H&P. Patient heart had regular rate and rhythm with no murmur or gallop appreciated, abdomen was soft and nontender, extremities had no edema and skin was pale. Lungs were clear despite suggestion of CHF exacerbation. Psych Mental Status: mental status grossly normal Speech and Movement: speech and movement normal Mood: congruent mood Affect: normal affect DS: Data Vitals/I&O Vitals and I&O: Vital Signs Temperature 37.0 C 03/03/25 19:21 Temperature Source Temporal Artery Scan 03/03/25 19:21 Pulse 98 H 03/03/25 19:21 Pulse 105 H 03/03/25 18:46 Respiratory Rate 23 03/03/25 18:46 Respiratory Effort Non-Labored 03/03/25 19:21 Respiratory Depth Normal 03/03/25 19:21 Respiratory Pattern Normal 03/03/25 19:21 Blood Pressure 95/57 L 03/03/25 19:21 Blood Pressure Mean 69 03/03/25 19:21 Blood Pressure Position Supine 03/03/25 19:21 Pulse Oximetry 95 03/03/25 17:30 Oxygen Delivery Method Room Air 03/03/25 19:21 Oxygen Flow Rate 0 03/03/25 19:21 Pain Level 0 03/03/25 19:21 Intake & Output 03/02/25 03/03/25 03/03/25 23:59 11:59 23:59 Intake Total Balance Weight 71.94 kg 72.7 kg Intake: IV Other: Comment Pees a lot at night. On diuretics. Data Completed and Pending Labs on day of discharge: Labs from last 24 hours 03/03/25 03/03/25 03/03/25 22:45 21:00 19:03 WBC Pending Pending 9.87 RBC Pending Pending 2.77 L Hgb Pending Pending 8.2 L Hct Pending Pending 26.0 L MCV Pending Pending 94 MCH Pending Pending 29.6 MCHC Pending Pending 31.5 L RDW Pending Pending 16.2 H Plt Count Pending Pending 327 MPV Pending Pending 10.2 Immature Gran % Neutrophils % Lymphocytes % Monocytes % Eosinophils % Basophils % Nucleated RBC % Absolute Neutrophils Absolute Lymphocytes Absolute Monocytes Absolute Eosinophils Absolute Basophils PT 12.7 H INR 1.3 H Sodium Potassium Chloride Carbon Dioxide Anion Gap BUN Creatinine Est GFR (CKD-EPI 2020) Glucose Calcium Magnesium Total Bilirubin AST ALT Alkaline Phosphatase Troponin I NT-Pro-B Natriuret Pep Total Protein Albumin ABO/Rh Blood Type Recheck Pending Blood Group (off-site) Pending Antibody Screen 03/03/25 03/03/25 03/03/25 14:36 12:30 10:28 WBC RBC Hgb 8.1 L Hct 25.5 L MCV MCH MCHC RDW Plt Count MPV Immature Gran % Neutrophils % Lymphocytes % Monocytes % Eosinophils % Basophils % Nucleated RBC % Absolute Neutrophils Absolute Lymphocytes Absolute Monocytes Absolute Eosinophils Absolute Basophils PT INR Sodium Potassium Chloride Carbon Dioxide Anion Gap BUN Creatinine Est GFR (CKD-EPI 2020) Glucose Calcium Magnesium Total Bilirubin AST ALT Alkaline Phosphatase Troponin I 104 H* 100 H* NT-Pro-B Natriuret Pep Total Protein Albumin ABO/Rh Pending Blood Type Recheck Blood Group (off-site) Antibody Screen Pending 03/03/25 09:23 WBC 11.50 H RBC 2.91 L Hgb 8.7 L Hct 27.1 L MCV 93 MCH 29.9 MCHC 32.1 RDW 16.1 H Plt Count 383 MPV 10.8 Immature Gran % 0.4 Neutrophils % 83.4 Lymphocytes % 7.9 Monocytes % 7.2 Eosinophils % 0.8 Basophils % 0.3 Nucleated RBC % 0.0 Absolute Neutrophils 9.59 H Absolute Lymphocytes 0.91 L Absolute Monocytes 0.83 H Absolute Eosinophils 0.09 Absolute Basophils 0.03 PT INR Sodium 133 L Potassium 4.0 Chloride 94 L Carbon Dioxide 31.1 Anion Gap 7.9 BUN 37 H Creatinine 1.5 H Est GFR (CKD-EPI 2020) 50.08 Glucose 147 H Calcium 9.4 Magnesium 2.2 Total Bilirubin 0.8 AST 24 ALT 15 L Alkaline Phosphatase 78 Troponin I 111 H* NT-Pro-B Natriuret Pep 7421 H Total Protein 7.5 Albumin 3.8 ABO/Rh Blood Type Recheck Blood Group (off-site) Antibody Screen [facility] All Active Problems Non-ST elevation FL (NSTEMI) (Acute) Dehydration (Acute) GI bleeding (Acute) Acute exacerbation of congestive heart failure (Acute) ST elevation FL (STEMI) (Acute) S/P laparoscopic appendectomy (Acute ~12/07/19) Medical History (Updated 03/03/25 @ 20:19 by Kin Sotomayor) NSTEMI (non-ST elevated myocardial infarction) 10/18/2018 with stents X 4 at [facility] Restless legs syndrome Fatigue Cataplexy and narcolepsy Vitamin D deficiency Eosinophilia Hyperlipidemia Surgical History H/O heart artery stent x4 Social History Smoking/Tobacco Use Status: Former Tobacco Use Quit Date: 09/28/00 Smoking risk assessment performed?: Yes Alcohol Intake: current Alcohol Intake frequency: holidays/special occasions only Alcohol type: beer Drug use: Never Substance use type: does not use Housing: apartment Do you feel safe at home: Yes Do you feel safe in your relationship?: Yes Time Spent with Patient Time Spent with Patient: <45 minutes Time was spent: preparing to see the patient(eg.review tests), obtaining and/or reviewing separately otained hiistory, indepentently interpreting results, counseling the patient and care coordination
[2025-03-03] MEDS: Pantoprazole 40 MG VIAL IVP (21:26)
[2025-03-03 21:46] LABS: HCT 25.4 % (40.0-50.0); HGB 8.1 g/dL (13.5-17.5); MCH 29.6 pg (27.0-33.0); MCHC 31.9 % (32.0-36.0); MCV 93 fL (80-95); Platelet Count 344 10^3/uL (130-400); RBC 2.74 10^6/uL (4.36-5.78); RDW 16.4 % (11.8-14.1); RDW-SD 51.8 fL; WBC 9.83 10^3/uL (4.4-10.8)
--- NOTE | 2025-03-04 | W.PC.ACHO ---
Registration Status: Primary Language: Preferred Language: ED Information & Data Chief Complaint GenMedical 03/03/25 09:25 Chief Complaint GenMedical 03/03/25 08:55 Triage Note had multiple episodes of 03/03/25 08:48 waking in the night feeling like he couldn't breathe, Denies CP HX: stents placed last week Medical / Surgical History (Last Reviewed 03/03/25 @ 20:13 by Kin Sotomayor) NSTEMI (non-ST elevated myocardial infarction) Restless legs syndrome Fatigue Cataplexy and narcolepsy Vitamin D deficiency Eosinophilia Hyperlipidemia (Last Reviewed 03/03/25 @ 20:13 by Kin Sotomayor) H/O heart artery stent Most Recent Vital Signs Temperature 37.0 C 03/03/25 19:21 Temperature Source Temporal Artery Scan 03/03/25 19:21 Pulse 100 H 03/03/25 21:20 Pulse 101 H 03/03/25 21:40 Respiratory Rate 18 03/03/25 21:40 Respiratory Effort Non-Labored 03/03/25 19:21 Respiratory Depth Normal 03/03/25 19:21 Respiratory Pattern Normal 03/03/25 19:21 Blood Pressure 98/68 L 03/03/25 21:01 Blood Pressure Mean 79 03/03/25 21:01 Blood Pressure Position Supine 03/03/25 19:21 Pulse Oximetry 93 03/03/25 21:20 Oxygen Delivery Method Room Air 03/03/25 19:21 Oxygen Flow Rate 0 03/03/25 19:21 Pain Level 0 03/03/25 19:21 Allergies Sulfa (Sulfonamide Antibiotics) Allergy (Mild, Unverified 02/06/25 18:02) Nausea Precautions Isolation Standard precaution 03/03/25 09:25 IV IV Catheter Type [Right Saline Lock Antecubital] IV Catheter Gauge [Right 18 Antecubital] Diagnostics 03/03/25 03/03/25 03/03/25 Range/Units 22:45 21:40 19:03 WBC Cancelled 9.83 9.87 (4.4-10.8) 10^3/uL RBC Cancelled 2.74 L 2.77 L (4.36-5.78) 10^6/uL Hgb Cancelled 8.1 L 8.2 L (13.5-17.5) g/dL Hct Cancelled 25.4 L 26.0 L (40.0-50.0) % MCV Cancelled 93 94 (80-95) fL MCH Cancelled 29.6 29.6 (27.0-33.0) pg MCHC Cancelled 31.9 L 31.5 L (32.0-36.0) % RDW Cancelled 16.4 H 16.2 H (11.8-14.1) % Plt Count Cancelled 344 327 (130-400) 10^3/uL MPV Cancelled 11.0 10.2 (8.0-11.0) fL Immature Gran % % Neutrophils % % Lymphocytes % % Monocytes % % Eosinophils % % Basophils % % Nucleated RBC % (0.0-0.3) % Absolute Neutrophils (1.2-6.7) 10^3/uL Absolute Lymphocytes (1.2-3.4) 10^3/uL Absolute Monocytes (0.1-0.8) 10^3/uL Absolute Eosinophils (0.0-0.7) 10^3/uL Absolute Basophils (0.0-0.2) 10^3/uL PT 12.7 H (9.1-11.1) sec INR 1.3 H (0.9-1.1) Sodium (136-145) mmol/L Potassium (3.5-5.1) mmol/L Chloride (98-107) mmol/L Carbon Dioxide (21.0-32.0) mmol/L Anion Gap (3-11) mmol/L BUN (7-18) mg/dL Creatinine (0.70-1.30) mg/dL Est GFR (CKD-EPI 2020) (mL/min/1.73m2) Glucose (74-106) mg/dL Calcium (8.5-10.1) mg/dL Magnesium (1.8-2.4) mg/dL Total Bilirubin (0.2-1.0) mg/dL AST (15-37) U/L ALT (16-63) U/L Alkaline Phosphatase (46-116) U/L Troponin I (<or=76) ng/L NT-Pro-B Natriuret Pep (<300) pg/mL Total Protein (6.4-8.2) g/dL Albumin (3.4-5.0) g/dL ABO/Rh Blood Type Recheck Pending Blood Group (off-site) Pending Antibody Screen 03/03/25 03/03/25 03/03/25 Range/Units 14:36 12:30 10:28 WBC (4.4-10.8) 10^3/uL RBC (4.36-5.78) 10^6/uL Hgb 8.1 L (13.5-17.5) g/dL Hct 25.5 L (40.0-50.0) % MCV (80-95) fL MCH (27.0-33.0) pg MCHC (32.0-36.0) % RDW (11.8-14.1) % Plt Count (130-400) 10^3/uL MPV (8.0-11.0) fL Immature Gran % % Neutrophils % % Lymphocytes % % Monocytes % % Eosinophils % % Basophils % % Nucleated RBC % (0.0-0.3) % Absolute Neutrophils (1.2-6.7) 10^3/uL Absolute Lymphocytes (1.2-3.4) 10^3/uL Absolute Monocytes (0.1-0.8) 10^3/uL Absolute Eosinophils (0.0-0.7) 10^3/uL Absolute Basophils (0.0-0.2) 10^3/uL PT (9.1-11.1) sec INR (0.9-1.1) Sodium (136-145) mmol/L Potassium (3.5-5.1) mmol/L Chloride (98-107) mmol/L Carbon Dioxide (21.0-32.0) mmol/L Anion Gap (3-11) mmol/L BUN (7-18) mg/dL Creatinine (0.70-1.30) mg/dL Est GFR (CKD-EPI 2020) (mL/min/1.73m2) Glucose (74-106) mg/dL Calcium (8.5-10.1) mg/dL Magnesium (1.8-2.4) mg/dL Total Bilirubin (0.2-1.0) mg/dL AST (15-37) U/L ALT (16-63) U/L Alkaline Phosphatase (46-116) U/L Troponin I 104 H* 100 H* (<or=76) ng/L NT-Pro-B Natriuret Pep (<300) pg/mL Total Protein (6.4-8.2) g/dL Albumin (3.4-5.0) g/dL ABO/Rh Pending Blood Type Recheck Blood Group (off-site) Antibody Screen Pending 03/03/25 Range/Units 09:23 WBC 11.50 H (4.4-10.8) 10^3/uL RBC 2.91 L (4.36-5.78) 10^6/uL Hgb 8.7 L (13.5-17.5) g/dL Hct 27.1 L (40.0-50.0) % MCV 93 (80-95) fL MCH 29.9 (27.0-33.0) pg MCHC 32.1 (32.0-36.0) % RDW 16.1 H (11.8-14.1) % Plt Count 383 (130-400) 10^3/uL MPV 10.8 (8.0-11.0) fL Immature Gran % 0.4 % Neutrophils % 83.4 % Lymphocytes % 7.9 % Monocytes % 7.2 % Eosinophils % 0.8 % Basophils % 0.3 % Nucleated RBC % 0.0 (0.0-0.3) % Absolute Neutrophils 9.59 H (1.2-6.7) 10^3/uL Absolute Lymphocytes 0.91 L (1.2-3.4) 10^3/uL Absolute Monocytes 0.83 H (0.1-0.8) 10^3/uL Absolute Eosinophils 0.09 (0.0-0.7) 10^3/uL Absolute Basophils 0.03 (0.0-0.2) 10^3/uL PT (9.1-11.1) sec INR (0.9-1.1) Sodium 133 L (136-145) mmol/L Potassium 4.0 (3.5-5.1) mmol/L Chloride 94 L (98-107) mmol/L Carbon Dioxide 31.1 (21.0-32.0) mmol/L Anion Gap 7.9 (3-11) mmol/L BUN 37 H (7-18) mg/dL Creatinine 1.5 H (0.70-1.30) mg/dL Est GFR (CKD-EPI 2020) 50.08 (mL/min/1.73m2) Glucose 147 H (74-106) mg/dL Calcium 9.4 (8.5-10.1) mg/dL Magnesium 2.2 (1.8-2.4) mg/dL Total Bilirubin 0.8 (0.2-1.0) mg/dL AST 24 (15-37) U/L ALT 15 L (16-63) U/L Alkaline Phosphatase 78 (46-116) U/L Troponin I 111 H* (<or=76) ng/L NT-Pro-B Natriuret Pep 7421 H (<300) pg/mL Total Protein 7.5 (6.4-8.2) g/dL Albumin 3.8 (3.4-5.0) g/dL ABO/Rh Blood Type Recheck Blood Group (off-site) Antibody Screen Intake and Output - 24 Hour Total 03/03/25 08:44 thru 03/03/25 19:25 Intake Total 10 Balance 10 Weight 72.7 kg Intake: IV 10 Other: Comment Pees a lot at night. On diuretics. Falls Risk Assessment History of Falls No History 03/03/25 19:21 Contributing Factors No Factors 03/03/25 19:21 Ambulatory Aids Independent 03/03/25 10:29 Tubes/Lines None 03/03/25 10:29 Gait Evaluation No gait disturbance 03/03/25 19:21 Cognition No cognitive impairment 03/03/25 10:29 Fall Total Score 0 03/03/25 19:21 Level of Risk Standard/Low Risk 03/03/25 19:21 Problems (Last Reviewed 03/03/25 @ 20:13 by Kin Sotomayor) Non-ST elevation HI (NSTEMI) (Acute) Dehydration (Acute) GI bleeding (Acute) Acute exacerbation of congestive heart failure (Acute) Notes 03/03/25 18:46 Nursing Notes by Ashley Bingham Nursing Note: PT refused Blood transfusion told this nurse he does not want to receive blood from anyone who has had a covid vaccine Initialized on 03/03/25 18:46 - END OF NOTE v v v v v v v v v Sending and/or Receiving Nurses: Please use comment section below to note any information pertinent to the patient hand-off not included above. Information / Comments: Report received from: Jaylan Bingham RN all questions answered: yes
== END 2025-03-03 22:00 | disposition short-term general hospital (02) | DRG 280 ==
LOC: ER 13:40 → ICU 19:20
PROVIDERS: Emergency Medicine; Family Medicine; Nurse Practitioner Acute Care; Admitting Provider Family Medicine; Emergency Provider Physician Assistant; PCP Emergency Medicine Undersea and Hyperbaric Medicine; Visit Provider Family Medicine
DX: I22.2 Subsequent non-ST elevation (NSTEMI) myocardial infarction (principal); I50.23 Acute on chronic systolic (congestive) heart failure; D62 Acute posthemorrhagic anemia; K92.1 Melena; I21.3 ST elevation (STEMI) myocardial infarction of unspecified site; E86.0 Dehydration; R53.1 Weakness; G25.81 Restless legs syndrome; E55.9 Vitamin D deficiency, unspecified; G47.411 Narcolepsy with cataplexy; E78.5 Hyperlipidemia, unspecified; Z87.891 Personal history of nicotine dependence; I48.91 Unspecified atrial fibrillation; Z66 Do not resuscitate; I25.2 Old myocardial infarction; Z95.5 Presence of coronary angioplasty implant and graft; Z79.01 Long term (current) use of anticoagulants; Z79.82 Long term (current) use of aspirin
CPT/HCPCS: 00123; 36415; 80053; 85027; 86850; 86900; 86901; 86920; 93005; 99285; 71046; 83735; 83880; 84484; 85014; 85018; 85025; 85610; 86870; 86880; 93010; 99223; J2470